=== PATIENT | female | born 1955 | race Caucasian/White ===

== ENCOUNTER 2021-01-16 13:41 | Inpatient (IN) | payer MEDICARE ==
[2021-01-16] MEDS ORDERED: Sodium Chloride 0.9% 10 ML Syringe FLUSH PRN (15:39)
--- NOTE | 2021-01-16 16:00 | EDM.PDOC ---
ED HPI GENERAL MEDICAL PROBLEM - General Chief Complaint: Gastrointestinal Problem Stated Complaint: VOMITING\ COUGH Time Seen by Provider: 01/16/21 14:40 Source of Information: Reports: Patient, Family History Limitations: Reports: No Limitations - History of Present Illness INITIAL COMMENTS - FREE TEXT/NARRATIVE: 65-year-old female presents to emergency department with complaints of fever, chills, nausea, body aches, weakness, headache, shortness of breath and cough. Patient states that the symptoms started 3 days ago. Patient does have a history of heart transplant and kidney transplant in 2014. She states that she has had her Covid vaccines as well as her booster, most recently in September however she does take immunosuppressants. Patient states that she did have Covid January 2020 however managed to stay home. Patient is visiting here from [place]. Back Pain Score (Numeric/FACES): 5 - Related Data Allergies Allergy/AdvReac Type Severity Reaction Status Date / Time piperacillin [From Zosyn] Allergy Severe Itching Verified 01/18/21 23:44 tazobactam [From Zosyn] Allergy Severe Itching Verified 01/18/21 23:44 sulfamethoxazole Allergy Rash Verified 01/16/21 21:13 [From Bactrim] trimethoprim [From Bactrim] Allergy Rash Verified 01/16/21 21:13 Home Meds: Home Meds Aspirin 81 mg PO DAILY 01/16/21 [History] Levothyroxine 75 mcg PO DAILY 01/16/21 [History] Pantoprazole [ProTONIX] 40 mg PO DAILY 01/16/21 [History] Tacrolimus 1 mg PO BEDTIME 01/16/21 [History] Tacrolimus [Prograf] 1.5 mg PO QAM 01/16/21 [History] amLODIPine [Norvasc] 5 mg PO DAILY 01/16/21 [History] atorvaSTATin [Lipitor] 10 mg PO DAILY 01/16/21 [History] mycophenolate mofetiL [Mycophenolate Mofetil] 250 mg PO BID 01/16/21 [History] Ascorbic Acid 2 tab PO DAILY 01/17/21 [History] Cholecalciferol (Vitamin D3) [Vitamin D3] 200 mcg PO BID 01/17/21 [History] Bryan-3/DHA/Epa/Fish Oil [Eql Fish Oil EC 1,200 mg Sftgl] 1 cap PO BID 01/17/21 [History] Vitamin E 1 cap PO BID 01/17/21 [History] predniSONE 5 mg PO DAILY 01/17/21 [History] Past Medical History Cardiovascular History: Reports: High Cholesterol, Hypertension, Other (See Below) Other Cardiovascular History: heart translpant Gastrointestinal History: Reports: GERD Genitourinary History: Reports: Other (See Below) Other Genitourinary History: left kidney transplant [employer] History: Reports: Psychiatric History: Reports: Depression Endocrine/Metabolic History: Reports: Hypothyroidism - Infectious Disease History Infectious Disease History: Reports: Pertussis (Whooping Cough) Social & Family History - Tobacco Use Tobacco Use Status *Q: Never Tobacco User Second Hand Smoke Exposure: No - Caffeine Use Caffeine Use: Reports: Coffee, Soda - Recreational Drug Use Recreational Drug Use: No ED ROS GENERAL - Review of Systems Review Of Systems: Comprehensive ROS is negative, except as noted in HPI. ED EXAM, GENERAL - Physical Exam Exam: See Below Exam Limited By: No Limitations General Appearance: Alert, WD/WN, Moderate Distress Ears: Normal External Exam, Hearing Grossly Normal Nose: Normal Inspection Throat/Mouth: Normal Inspection, Normal Lips, Normal Voice, No Airway Compromise Head: Atraumatic, Normocephalic Neck: Normal Inspection, Supple Respiratory/Chest: No Respiratory Distress, Chest Non-Tender, Decreased Breath Sounds, Crackles (Bilateral) Cardiovascular: Normal Peripheral Pulses, Regular Rate, Rhythm, No Edema, No Murmur Peripheral Pulses: 2+: Radial (L), Radial (R) GI/Abdominal: Normal Bowel Sounds, Soft, Non-Tender, No Distention (Female) Exam: Deferred Rectal (Female) Exam: Deferred Back Exam: Normal Inspection Extremities: Normal Inspection Neurological: Alert, Oriented, Normal Cognition Psychiatric: Normal Affect, Normal Mood Skin Exam: Warm, Dry, Intact, Normal Color, No Rash Lymphatic: No Adenopathy #1 Interpretation EKG Date: 01/16/21 Time: 14:55 Rhythm: NSR Rate (Beats/Min): 96 [place]: LAD-Left [place] Deviation P-Wave: Present QRS: Normal ST-T: Normal QT: Normal Comparison: NA - No Prior EKG EKG Interpretation Comments: Per Dr. Cordon interpretation: Sinus rhythm at 96 bpm; probable left atrial enlargement; borderline left axis deviation; probable anteroseptal infarct, old Course - Vital Signs Text/Narrative:: As stated above, patient presents with Covid-like symptoms despite having Covid swab. I am highly suspicious that she has this. Physical exam reveals a very ill-appearing female. She does appear weak. States that she is feeling short of breath. Nursing staff did have to apply oxygen at 2 L per nasal cannula as her room air saturations were 86%. She does have a systolic murmur noted. Abdomen is soft and nontender. Lung sounds are diminished with crackles noted bilaterally. Will obtain a full septic work-up on this patient to include lab studies, x-ray, blood cultures and urinalysis with micro and culture if indicated. Will also order viral culture per Dr. Cordon recommendations. Last Recorded V/S: Last Vital Signs Temp 97.9 F 01/19/21 05:06 Pulse 76 01/19/21 05:06 Resp 20 01/19/21 05:06 BP 125/77 01/19/21 05:06 Pulse Ox 95 01/19/21 05:06 - Orders/Labs/Meds Orders: Medication Orders Acetaminophen (Acetaminophen 325 Mg Tab) 650 mg PO Q4H PRN PRN Reason: Pain/Fever Last Admin: 01/17/21 08:30 Dose: 650 mg Documented by: ISMA Albuterol (Albuterol 0.083% 2.5 Mg/3 Ml Neb Soln) 2.5 mg NEB Q4H PRN PRN Reason: Shortness of Breath Amlodipine Besylate (Amlodipine 5 Mg Tab) 5 mg PO DAILY [facility] Last Admin: 01/18/21 08:47 Dose: 5 mg Documented by: Admin: 01/17/21 08:32 Dose: 5 mg Documented by: ISMA Ascorbic Acid (Ascorbic Acid 500 Mg Tab) 1,000 mg PO DAILY [facility] Last Admin: 01/18/21 08:47 Dose: 1,000 mg Documented by: JORDAN Aspirin (Aspirin 81 Mg Tab.Chew) 81 mg PO DAILY [facility] Last Admin: 01/18/21 08:47 Dose: 81 mg Documented by: Admin: 01/17/21 08:31 Dose: 81 mg Documented by: ISMA Atorvastatin Calcium (Atorvastatin 20 Mg Tab) 10 mg PO DAILY [facility] Last Admin: 01/18/21 08:46 Dose: 10 mg Documented by: Admin: 01/17/21 08:32 Dose: 10 mg Documented by: ISMA Benzonatate (Benzonatate 100 Mg Cap) 100 mg PO TID PRN PRN Reason: Cough Last Admin: 01/18/21 10:04 Dose: 100 mg Documented by: JORDAN Cholecalciferol (Cholecalciferol (Vitamin D3) 25 Mcg Tab) 25 mcg PO BID [facility] Last Admin: 01/18/21 20:08 Dose: 25 mcg Documented by: Admin: 01/18/21 08:46 Dose: 25 mcg Documented by: JORDAN Diphenhydramine HCl (Diphenhydramine 25 Mg Cap) 25 mg PO Q6HR PRN PRN Reason: Itching Last Admin: 01/18/21 01:18 Dose: 25 mg Documented by: Admin: 01/17/21 10:50 Dose: 25 mg Documented by: ISMA Fish Oil (Fish Oil/Bryan-3 Fatty Acids 1 Gm Cap) 1 gm PO BID [facility] Last Admin: 01/18/21 20:08 Dose: 1 gm Documented by: Admin: 01/18/21 08:46 Dose: 1 gm Documented by: JORDAN Guaifenesin/Codeine Phosphate (Codeine/Guaifenesin 10-100 Mg/5 Ml Syrup 5 Ml Cup) 10 ml PO Q4H PRN PRN Reason: Cough Last Admin: 01/18/21 15:09 Dose: 10 ml Documented by: JORDAN Heparin Sodium (Porcine) (Heparin Sodium 5,000 Units/Ml Vial) 5,000 units SUBCUT Q8H [facility] Last Admin: 01/19/21 01:09 Dose: 5,000 units Documented by: Admin: 01/18/21 17:00 Dose: 5,000 units Documented by: Admin: 01/18/21 10:04 Dose: 5,000 units Documented by: Admin: 01/18/21 01:22 Dose: 5,000 units Documented by: Admin: 01/17/21 17:03 Dose: 5,000 units Documented by: Admin: 01/17/21 10:04 Dose: 5,000 units Documented by: ISMA Hydroxyzine HCl (Hydroxyzine Hcl 10 Mg Tab) 10 mg PO Q8H PRN PRN Reason: Itching Last Admin: 01/18/21 15:34 Dose: 10 mg Documented by: JORDNA Azithromycin 500 mg/ Sodium (Chloride) 250 mls @ 250 mls/hr IV Q24H [facility] Last Admin: 01/18/21 16:31 Dose: 250 mls/hr Documented by: Infusion: 01/17/21 18:29 Dose: 250 mls/hr Documented by: Admin: 01/17/21 17:29 Dose: 250 mls/hr Documented by: ISMA Levothyroxine Sodium (Levothyroxine 75 Mcg Tab) 75 mcg PO ACBREAKFAST [facility] Last Admin: 01/19/21 05:08 Dose: 75 mcg Documented by: Admin: 01/18/21 06:03 Dose: 75 mcg Documented by: Admin: 01/17/21 08:32 Dose: 75 mcg Documented by: ISMA Lorazepam (Lorazepam 0.5 Mg Tab) 0.5 mg PO Q4H PRN PRN Reason: Anxiety Last Admin: 01/18/21 12:57 Dose: 0.5 mg Documented by: JORDAN Mycophenolate Mofetil (Mycophenolate Mofetil 250 Mg Cap) 250 mg PO BID [facility] Last Admin: 01/18/21 20:08 Dose: 250 mg Documented by: Admin: 01/18/21 08:52 Dose: 250 mg Documented by: Admin: 01/17/21 20:41 Dose: 250 mg Documented by: Admin: 01/17/21 08:34 Dose: 250 mg Documented by: ISMA Tacrolimus 0.5 Mg (Cap) 0 each PO DAILY [facility] Last Admin: 01/18/21 08:51 Dose: 1 each Documented by: Admin: 01/17/21 10:06 Dose: 1 each Documented by: ISMA Ondansetron HCl (Ondansetron 4 Mg/2 Ml Sdv) 4 mg IVPUSH Q6H PRN PRN Reason: Nausea Pantoprazole Sodium (Pantoprazole 40 Mg Tab.Cr) 40 mg PO DAILY [facility] Last Admin: 01/18/21 08:46 Dose: 40 mg Documented by: Admin: 01/17/21 08:32 Dose: 40 mg Documented by: ISMA Prednisone (Prednisone 5 Mg Tab) 5 mg PO DAILY [facility] Last Admin: 01/18/21 08:46 Dose: 5 mg Documented by: Admin: 01/17/21 08:32 Dose: 5 mg Documented by: ISMA Tacrolimus (Tacrolimus 1 Mg Cap) 1 mg PO BEDTIME [facility] Last Admin: 01/18/21 20:09 Dose: 1 mg Documented by: Admin: 01/17/21 21:04 Dose: 1 mg Documented by: JEFFY Tacrolimus (Tacrolimus 1 Mg Cap) 1 mg PO DAILY [facility] Last Admin: 01/18/21 08:50 Dose: 1 mg Documented by: Admin: 01/17/21 10:05 Dose: 1 mg Documented by: ISMA Vitamin E (Vitamin E (Vf-Qyven-Ydvuxbukqb Acetate) 400 Unit Cap) 400 units PO BID [facility] Last Admin: 01/18/21 20:08 Dose: 400 units Documented by: Admin: 01/18/21 08:46 Dose: 400 units Documented by: JORDAN Labs: Laboratory Tests 01/16/21 01/16/21 01/16/21 Range/Units 14:35 14:48 14:48 WBC 11.83 H (3.98-10.04) K/mm3 RBC 4.70 (3.98-5.22) M/mm3 Hgb 13.2 (11.2-15.7) gm/dl Hct 42.3 (34.1-44.9) % MCV 90.0 (79.4-94.8) fl MCH 28.1 (25.6-32.2) pg MCHC 31.2 L (32.2-35.5) g/dl RDW Std Deviation 52.6 H (36.4-46.3) fL Plt Count 202 (182-369) K/mm3 MPV 10.1 (9.4-12.3) fl Neut % (Auto) 86.2 H (34.0-71.1) % Lymph % (Auto) 9.0 L (19.3-51.7) % [place] % (Auto) 4.1 L (4.7-12.5) % Eos % (Auto) 0.3 L (0.7-5.8) Baso % (Auto) 0.2 (0.1-1.2) % Neut # (Auto) 10.21 H (1.56-6.13) K/mm3 Lymph # (Auto) 1.07 L (1.18-3.74) K/mm3 [place] # (Auto) 0.48 H (0.24-0.36) K/mm3 Eos # (Auto) 0.03 L (0.04-0.36) K/mm3 Baso # (Auto) 0.02 (0.01-0.08) K/mm3 PT (9.7-12.0) SECONDS INR D-Dimer, Quantitative 3.72 H (0.19-0.50) mg/L Sodium (136-145) mEq/L Potassium (3.5-5.1) mEq/L Chloride (98-107) mEq/L Carbon Dioxide (21-32) mEq/L Anion Gap (5-15) BUN (7-18) mg/dL Creatinine (0.55-1.02) mg/dL Est Cr Clr Drug Dosing mL/min Estimated GFR (MDRD) (>60) mL/min BUN/Creatinine Ratio (14-18) Glucose (70-99) mg/dL Lactic Acid (0.4-2.0) mmol/L Calcium (8.5-10.1) mg/dL Magnesium (1.8-2.4) mg/dL Total Bilirubin (0.2-1.0) mg/dL AST (15-37) U/L ALT (14-59) U/L Alkaline Phosphatase (46-116) U/L Troponin I (0.00-0.056) ng/mL C-Reactive Protein (<1.0) mg/dL NT-Pro-B Natriuret Pep (0-125) pg/mL Total Protein (6.4-8.2) g/dl Albumin (3.4-5.0) g/dl Globulin gm/dL Albumin/Globulin Ratio (1-2) Urine Color (Yellow) Urine Appearance (Clear) Urine pH (5.0-8.0) Ur Specific [place] (1.005-1.030) Urine Protein (Negative) Urine Glucose (UA) (Negative) Urine Ketones (Negative) Urine Occult Blood (Negative) Urine Nitrite (Negative) Urine Bilirubin (Negative) Urine Urobilinogen (0.2-1.0) Ur Leukocyte Esterase (Negative) Urine RBC (0-5) /hpf Urine WBC (0-5) /hpf Ur Squamous Epith Cells (0-5) /hpf Urine Bacteria (FEW) /hpf Urine Mucus (FEW) /hpf Influenza Type A RNA Negative (NEGATIVE) Influenza Type B RNA Negative (NEGATIVE) SARS-CoV-2 RNA (CLAUDY) Negative (NEGATIVE) 01/16/21 01/16/21 01/16/21 Range/Units 14:48 14:48 14:48 WBC (3.98-10.04) K/mm3 RBC (3.98-5.22) M/mm3 Hgb (11.2-15.7) gm/dl Hct (34.1-44.9) % MCV (79.4-94.8) fl MCH (25.6-32.2) pg MCHC (32.2-35.5) g/dl RDW Std Deviation (36.4-46.3) fL Plt Count (182-369) K/mm3 MPV (9.4-12.3) fl Neut % (Auto) (34.0-71.1) % Lymph % (Auto) (19.3-51.7) % [place] % (Auto) (4.7-12.5) % Eos % (Auto) (0.7-5.8) Baso % (Auto) (0.1-1.2) % Neut # (Auto) (1.56-6.13) K/mm3 Lymph # (Auto) (1.18-3.74) K/mm3 [place] # (Auto) (0.24-0.36) K/mm3 Eos # (Auto) (0.04-0.36) K/mm3 Baso # (Auto) (0.01-0.08) K/mm3 PT (9.7-12.0) SECONDS INR D-Dimer, Quantitative (0.19-0.50) mg/L Sodium 140 (136-145) mEq/L Potassium 3.5 (3.5-5.1) mEq/L Chloride 101 (98-107) mEq/L Carbon Dioxide 27 (21-32) mEq/L Anion Gap 15.5 H (5-15) BUN 20 H (7-18) mg/dL Creatinine 1.2 H (0.55-1.02) mg/dL Est Cr Clr Drug Dosing 35.27 mL/min Estimated GFR (MDRD) 45 (>60) mL/min BUN/Creatinine Ratio 16.7 (14-18) Glucose 153 H (70-99) mg/dL Lactic Acid 2.6 H* (0.4-2.0) mmol/L Calcium 9.0 (8.5-10.1) mg/dL Magnesium 1.3 L (1.8-2.4) mg/dL Total Bilirubin 0.9 (0.2-1.0) mg/dL AST 15 (15-37) U/L ALT 23 (14-59) U/L Alkaline Phosphatase 49 (46-116) U/L Troponin I < 0.017 (0.00-0.056) ng/mL C-Reactive Protein 4.2 H* (<1.0) mg/dL NT-Pro-B Natriuret Pep 352 H (0-125) pg/mL Total Protein 8.3 H (6.4-8.2) g/dl Albumin 4.2 (3.4-5.0) g/dl Globulin 4.1 gm/dL Albumin/Globulin Ratio 1.0 (1-2) Urine Color (Yellow) Urine Appearance (Clear) Urine pH (5.0-8.0) Ur Specific [place] (1.005-1.030) Urine Protein (Negative) Urine Glucose (UA) (Negative) Urine Ketones (Negative) Urine Occult Blood (Negative) Urine Nitrite (Negative) Urine Bilirubin (Negative) Urine Urobilinogen (0.2-1.0) Ur Leukocyte Esterase (Negative) Urine RBC (0-5) /hpf Urine WBC (0-5) /hpf Ur Squamous Epith Cells (0-5) /hpf Urine Bacteria (FEW) /hpf Urine Mucus (FEW) /hpf Influenza Type A RNA (NEGATIVE) Influenza Type B RNA (NEGATIVE) SARS-CoV-2 RNA (CLAUDY) (NEGATIVE) 01/16/21 01/16/21 01/16/21 Range/Units 14:48 16:11 18:30 WBC (3.98-10.04) K/mm3 RBC (3.98-5.22) M/mm3 Hgb (11.2-15.7) gm/dl Hct (34.1-44.9) % MCV (79.4-94.8) fl MCH (25.6-32.2) pg MCHC (32.2-35.5) g/dl RDW Std Deviation (36.4-46.3) fL Plt Count (182-369) K/mm3 MPV (9.4-12.3) fl Neut % (Auto) (34.0-71.1) % Lymph % (Auto) (19.3-51.7) % [place] % (Auto) (4.7-12.5) % Eos % (Auto) (0.7-5.8) Baso % (Auto) (0.1-1.2) % Neut # (Auto) (1.56-6.13) K/mm3 Lymph # (Auto) (1.18-3.74) K/mm3 [place] # (Auto) (0.24-0.36) K/mm3 Eos # (Auto) (0.04-0.36) K/mm3 Baso # (Auto) (0.01-0.08) K/mm3 PT 10.5 (9.7-12.0) SECONDS INR 0.94 D-Dimer, Quantitative (0.19-0.50) mg/L Sodium (136-145) mEq/L Potassium (3.5-5.1) mEq/L Chloride (98-107) mEq/L Carbon Dioxide (21-32) mEq/L Anion Gap (5-15) BUN (7-18) mg/dL Creatinine (0.55-1.02) mg/dL Est Cr Clr Drug Dosing mL/min Estimated GFR (MDRD) (>60) mL/min BUN/Creatinine Ratio (14-18) Glucose (70-99) mg/dL Lactic Acid 1.8 (0.4-2.0) mmol/L Calcium (8.5-10.1) mg/dL Magnesium (1.8-2.4) mg/dL Total Bilirubin (0.2-1.0) mg/dL AST (15-37) U/L ALT (14-59) U/L Alkaline Phosphatase (46-116) U/L Troponin I (0.00-0.056) ng/mL C-Reactive Protein (<1.0) mg/dL NT-Pro-B Natriuret Pep (0-125) pg/mL Total Protein (6.4-8.2) g/dl Albumin (3.4-5.0) g/dl Globulin gm/dL Albumin/Globulin Ratio (1-2) Urine Color Yellow (Yellow) Urine Appearance Clear (Clear) Urine pH 6.5 (5.0-8.0) Ur Specific [place] 1.020 (1.005-1.030) Urine Protein Trace H (Negative) Urine Glucose (UA) Negative (Negative) Urine Ketones Negative (Negative) Urine Occult Blood Negative (Negative) Urine Nitrite Negative (Negative) Urine Bilirubin Negative (Negative) Urine Urobilinogen 0.2 (0.2-1.0) Ur Leukocyte Esterase Negative (Negative) Urine RBC 0-5 (0-5) /hpf Urine WBC 0-5 (0-5) /hpf Ur Squamous Epith Cells 0-5 (0-5) /hpf Urine Bacteria Few (FEW) /hpf Urine Mucus Few (FEW) /hpf Influenza Type A RNA (NEGATIVE) Influenza Type B RNA (NEGATIVE) SARS-CoV-2 RNA (CLAUDY) (NEGATIVE) Meds: Medications Generic Name Dose Route Start Last Admin Trade Name Freq PRN Reason Stop Dose Admin Acetaminophen 650 mg 01/16/21 22:41 01/17/21 08:30 Acetaminophen 325 Mg Tab PO 650 mg Q4H PRN Administration Pain/Fever Albuterol 2.5 mg 01/16/21 22:42 Albuterol 0.083% 2.5 Mg/3 Ml Neb Soln NEB Q4H PRN Shortness of Breath Amlodipine Besylate 5 mg 01/17/21 09:00 01/18/21 08:47 Amlodipine 5 Mg Tab PO 5 mg DAILY ARANZA Administration Ascorbic Acid 1,000 mg 01/18/21 09:00 01/18/21 08:47 Ascorbic Acid 500 Mg Tab PO 1,000 mg DAILY ARANZA Administration Aspirin 81 mg 01/17/21 09:00 01/18/21 08:47 Aspirin 81 Mg Tab.Chew PO 81 mg DAILY ARANZA Administration Atorvastatin Calcium 10 mg 01/17/21 09:00 01/18/21 08:46 Atorvastatin 20 Mg Tab PO 10 mg DAILY ARANZA Administration Benzonatate 100 mg 01/18/21 09:04 01/18/21 10:04 Benzonatate 100 Mg Cap PO 100 mg TID PRN Administration Cough Cholecalciferol 25 mcg 01/18/21 09:00 01/18/21 20:08 Cholecalciferol (Vitamin D3) 25 Mcg Tab PO 25 mcg BID ARANZA Administration Diphenhydramine HCl 25 mg 01/17/21 10:26 01/18/21 01:18 Diphenhydramine 25 Mg Cap PO 25 mg Q6HR PRN Administration Itching Fish Oil 1 gm 01/18/21 09:00 01/18/21 20:08 Fish Oil/Bryan-3 Fatty Acids 1 Gm Cap PO 1 gm BID ARANZA Administration Guaifenesin/Codeine Phosphate 10 ml 01/18/21 14:58 01/18/21 15:09 Codeine/Guaifenesin 10-100 Mg/5 Ml Syrup 5 Ml Cup PO 10 ml Q4H PRN Administration Cough Heparin Sodium (Porcine) 5,000 units 01/17/21 10:00 01/19/21 01:09 Heparin Sodium 5,000 Units/Ml Vial SUBCUT 5,000 units Q8H ARANZA Administration Hydroxyzine HCl 10 mg 01/18/21 10:13 01/18/21 15:34 Hydroxyzine Hcl 10 Mg Tab PO 10 mg Q8H PRN Administration Itching Azithromycin 500 mg/ Sodium 250 mls @ 250 mls/hr 01/17/21 17:15 01/18/21 16:31 Chloride IV 250 mls/hr Q24H ARANZA Administration Levothyroxine Sodium 75 mcg 01/17/21 07:00 01/19/21 05:08 Levothyroxine 75 Mcg Tab PO 75 mcg ACBREAKFAST ARANZA Administration Lorazepam 0.5 mg 01/18/21 10:12 01/18/21 12:57 Lorazepam 0.5 Mg Tab PO 0.5 mg Q4H PRN Administration Anxiety Mycophenolate Mofetil 250 mg 01/17/21 09:00 01/18/21 20:08 Mycophenolate Mofetil 250 Mg Cap PO 250 mg BID ARANZA Administration Tacrolimus 0.5 Mg 0 each 01/17/21 10:00 01/18/21 08:51 Cap PO 1 each DAILY ARANZA Administration Ondansetron HCl 4 mg 01/16/21 22:40 Ondansetron 4 Mg/2 Ml Sdv IVPUSH Q6H PRN Nausea Pantoprazole Sodium 40 mg 01/17/21 09:00 01/18/21 08:46 Pantoprazole 40 Mg Tab.Cr PO 40 mg DAILY ARANZA Administration Prednisone 5 mg 01/17/21 09:00 01/18/21 08:46 Prednisone 5 Mg Tab PO 5 mg DAILY ARANZA Administration Tacrolimus 1 mg 01/17/21 21:00 01/18/21 20:09 Tacrolimus 1 Mg Cap PO 1 mg BEDTIME ARANZA Administration Tacrolimus 1 mg 01/17/21 10:00 01/18/21 08:50 Tacrolimus 1 Mg Cap PO 1 mg DAILY ARANZA Administration Vitamin E 400 units 01/18/21 09:00 01/18/21 20:08 Vitamin E (Gy-Lpjrd-Dyghuffzni Acetate) 400 Unit Cap PO 400 units BID ARANZA Administration Discontinued Medications Generic Name Dose Route Start Last Admin Trade Name Freq PRN Reason Stop Dose Admin Diphenhydramine HCl 25 mg 01/17/21 15:29 01/17/21 15:47 Diphenhydramine 25 Mg Cap PO 01/17/21 15:30 25 mg ONETIME ONE Administration Sodium Chloride 1,000 mls @ 250 mls/hr 01/16/21 17:00 01/16/21 17:14 Normal Saline IV 250 mls/hr ASDIRECTED ARANZA Administration Magnesium Sulfate 4 gm/ Premix 50 mls @ 12.5 mls/hr 01/16/21 16:59 01/16/21 17:16 IV 01/16/21 20:58 12.5 mls/hr ONETIME ONE Administration Meropenem/Sodium Chloride 500 50 mls @ 100 mls/hr 01/16/21 19:44 01/16/21 20:26 mg/ Premix IV 01/16/21 20:13 100 mls/hr ONETIME ONE Administration Meropenem/Sodium Chloride 500 50 mls @ 100 mls/hr 01/17/21 10:00 01/17/21 10:04 mg/ Premix IV 100 mls/hr Q8H ARANZA Administration Piperacillin Sod/Tazobactam 100 mls @ 25 mls/hr 01/17/21 17:15 01/18/21 08:52 Sod 4.5 gm/ Sodium Chloride IV Not Given Q8H ARANZA Ondansetron HCl 4 mg 01/16/21 16:56 01/16/21 17:15 Ondansetron 4 Mg/2 Ml Sdv IVPUSH 01/16/21 16:57 4 mg ONETIME ONE Administration Tacrolimus 0.5 Mg 1.5 each 01/17/21 08:00 01/17/21 11:48 Cap PO Not Given QAM ARANZA Prednisone 20 mg 01/17/21 16:56 01/17/21 17:03 Prednisone 20 Mg Tab PO 01/17/21 16:57 20 mg ONETIME ONE Administration Prednisone 20 mg 01/17/21 20:53 01/17/21 21:03 Prednisone 20 Mg Tab PO 01/17/21 20:54 20 mg ONETIME ONE Administration Prednisone 5 mg 01/18/21 09:00 Prednisone 5 Mg Tab PO DAILY ARANZA Sodium Chloride 10 ml 01/16/21 15:39 01/16/21 16:03 Sodium Chloride 0.9% 10 Ml Syringe FLUSH 10 ml ASDIRECTED PRN Administration Keep Vein Open - Re-Assessments/Exams Free Text/Narrative Re-Assessment/Exam: 01/16/21 16:34 Hematology reveals a WBC of 11.83, hemoglobin 13.2, hematocrit 42.3, platelet count 202 Coagulation reveals a pro time of 10.5, INR 0.94 Chemistry reveals a sodium of 140, potassium 3.5, anion gap 15.5, BUN 20, creatinine 1.2, GFR 45, glucose 153, lactic acid 2.6, magnesium 1.3, troponin less than 0.017, C-reactive protein 4.2 Urinalysis is unremarkable Influenza a and B are negative Covid is negative We will start the patient on normal saline at 250 mL's per hour. 01/16/21 17:59 D-dimer comes back elevated at 3.72, proBNP 352 We will obtain a CTA of the lungs. 01/16/21 18:01 Radiologist impression frontal view of the chest: 1. Slight increase in lung markings. Without old chest x-ray, uncertain of this is chronic or represents an acute change such as bronchitis if patient has infectious symptoms. Other etiology could possibly be mild pulmonary vascular congestion. 2. Other findings which are felt to be chronic 01/16/21 18:[address] of the chest: Pulmonary arteries are well opacified. No filling defects are seen to indicate pulmonary embolism. Ascending aorta is increased in size measuring 4.3 cm. Descending aorta appears normal in size. Mediastinum shows no adenopathy. No axillary adenopathy is seen. Heart size is enlarged. No pericardial thickening is seen. Small hiatal hernia is noted. Other visualized portions of the abdomen appear within normal limits. Lung window settings were reviewed. Mild patchy areas of reticulonodular densities are seen within the right upper lung with minimal interstitial changes seen within other portions of both lungs. Volume window settings were reviewed which show prior sternotomy. No acute osseous abnormalities appreciated. Impression: 1. No findings of pulmonary embolism. 2. 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 3. Heart is slightly enlarged. 4. Reticulonodular densities seen within the right upper lung as well as minimal interstitial change within both lungs. Findings presumably are due to areas of bronchitis if patient has infectious symptoms which could be bacterial or atypical infection, please correlate. 01/16/21 19:06 I do feel this patient needs to be admitted for the treatment of pneumonia. I did discuss the case with Dr. Jenkins who requests that I call and consult with cardiology regarding this patient. 01/16/21 19:14 I did phone [place] [id number] call to speak with roll tube setter senior compensation consultant. She states that she will give me a call back to connect me with roll tube setter. 01/16/21 19:35 Discussed this case with the on-call roll tube setter at [facility] in [place], Dr. Maria, who only recommends that first thing tomorrow the hospitalist contact the patient's precision farming coordinator and keep them in the loop regarding the patient. No further recommendations were given. 01/16/21 19:45 Discussed the case with Dr. Jenkins who does accept patient into his service. Request that I start the patient on meropenem for the treatment of pneumonia. He also request that I write bridge orders for this patient. Departure - Departure Time of Disposition: 20:45 Disposition: Admitted As Inpatient [id number] Condition: Good Clinical Impression: Pneumonia Qualifiers: Pneumonia type: due to unspecified organism Laterality: unspecified laterality Lung location: unspecified part of lung Qualified Code(s): J18.9 - Pneumonia, unspecified organism - Discharge Information
[2021-01-16 16:02] LABS: CORONAVIRUS COVID-19 NAA NEGATIVE (NEGATIVE)
[2021-01-16] MEDS ORDERED: Ondansetron 4 MG/2 ML SDV IVPUSH ONE (16:56)
[2021-01-16] MEDS ORDERED: Magnesium Sulfate/Water 4 GM in Premix Bag 1 BAG IV ONE (16:59)
[2021-01-16] MEDS ORDERED: Sodium Chloride 0.9% 1,000 ML IV SCH (17:00)
--- NOTE | 2021-01-16 17:02 | CR ---
Chest: Frontal view of the chest was obtained. Comparison: No prior chest imaging is available. Slight scoliosis is noted within the spine. Sternotomy is noted. Heart size appears to be at the upper limits of normal. Slight tortuosity of the thoracic aorta is seen. Lung markings are mildly increased on both sides of the chest. No alveolar densities are seen. Impression: 1. Slight increase in lung markings. Without old chest x-ray, uncertain of this is chronic or represents an acute change such as bronchitis if patient has infectious symptoms. Other etiology could possibly be mild pulmonary vascular congestion. 2. Other findings which are felt to be chronic as noted above. Diagnostic code #3
--- NOTE | 2021-01-16 18:27 | CT ---
CT chest Technique: Multiple axial sections through the chest were obtained. Intravenous contrast was utilized. Study has been performed as a pulmonary angiogram protocol. Comparison: Prior chest x-ray performed earlier in the same day (3:45 PM). Findings: Pulmonary arteries are well opacified. No filling defects are seen to indicate pulmonary embolism. Ascending aorta is increased in size measuring 4.3 cm. Descending aorta appears normal in size. Mediastinum shows no adenopathy. No axillary adenopathy is seen. Heart is slightly enlarged. No pericardial thickening is seen. Small hiatal hernia is noted. Other visualized portions of the abdomen appear within normal limits. Lung window settings were reviewed. Mild patchy areas of reticulonodular densities are seen within the right upper lung with minimal interstitial changes seen within other portions of both lungs. Bone window settings were reviewed which show prior sternotomy. No acute osseous abnormality is appreciated. Impression: 1. No findings of pulmonary embolism. 2. Mild aneurysmal dilatation of the ascending aorta with AP dimension of 4.3 cm. 3. Heart is slightly enlarged. 4. Reticulonodular densities within the right upper lung as well as minimal interstitial change within both lungs. Findings presumably are due to areas of bronchitis if patient has infectious symptoms which could be bacterial or atypical infection, please correlate. Diagnostic code #3
[2021-01-16] MEDS ORDERED: Meropenem Premix 500 MG in Premix Bag 1 BAG IV ONE (19:44)
[2021-01-16] MEDS ORDERED: Ondansetron 4 MG/2 ML SDV IVPUSH PRN (22:40)
[2021-01-16] MEDS ORDERED: Albuterol 0.083% 2.5 MG/3 ML Neb Soln NEB PRN (22:42)
--- NOTE | 2021-01-17 06:34 | PCM.HP.2 ---
H&P History of Present Illness - General Date of Service: 01/17/21 Admit Problem/Dx: Admission Diagnosis/Problem Admission Diagnosis/Problem pneumonia complicated by immune suppressants, acute respiratory failure Source of Information: Patient History Limitations: Reports: No Limitations - History of Present Illness Initial Comments - Free Text/Narative: The patient is a 65-year-old lady who had presented to the emergency department with a complaint of fever, chills, nausea with 1 episode of vomiting as well as body aches. Patient also says that she has had a headache and has been short of breath with a nonproductive cough. The patient is currently trying to travel b [employer] to her home in [place] and she has been visiting here. The patient has had COVID-19 in the past as well as immunizations. The patient also had been hypoxic in the emergency department and she does not use oxygen at home. The patient also has a history of heart transplant and kidney transplant and is on immunosuppressants. The patient also has a history of hypothyroidism as well as hypertension. The patient had been in her usual state of health up until approximately 3 days ago. She has no other specific aggravating or relieving factors. Onset of Symptoms: Reports: Gradual Duration of Symptoms: Reports: Day(s): (The patient was well up until 3 days ago.) Location: Reports: Chest, Generalized (Body aches) Quality: Reports: Ache, Dull Severity: Moderate Improves with: Reports: Rest Worsens with: Reports: None Context: Reports: Sick Contact, Travel Associated Symptoms: Reports: Cough, Fever/Chills, Headaches, Loss of Appetite, Nausea/Vomiting Back Pain Score (Numeric/FACES): 0 - Related Data Allergies/Adverse Reactions: Allergies Allergy/AdvReac Type Severity Reaction Status Date / Time sulfamethoxazole Allergy Rash Verified 01/16/21 21:13 [From Bactrim] trimethoprim [From Bactrim] Allergy Rash Verified 01/16/21 21:13 Home Medications: Home Meds Aspirin 81 mg PO DAILY 01/16/21 [History] Levothyroxine 75 mcg PO DAILY 01/16/21 [History] Pantoprazole [ProTONIX] 40 mg PO DAILY 01/16/21 [History] Tacrolimus 1 mg PO BEDTIME 01/16/21 [History] Tacrolimus [Prograf] 1.5 mg PO QAM 01/16/21 [History] amLODIPine [Norvasc] 5 mg PO DAILY 01/16/21 [History] atorvaSTATin [Lipitor] 10 mg PO DAILY 01/16/21 [History] mycophenolate mofetiL [Mycophenolate Mofetil] 250 mg PO BID 01/16/21 [History] Ascorbic Acid 2 tab PO DAILY 01/17/21 [History] Calcium Carbonate/Vitamin D3 [Oyster Shell 500-Vit D3 200 Pk] 01/17/21 [History] [place]-3/DHA/Epa/Fish Oil [Eql Fish Oil EC 1,200 mg Sftgl] 1 cap PO BID 01/17/21 [History] Vitamin E 1 cap PO BID 01/17/21 [History] predniSONE 5 mg PO DAILY 01/17/21 [History] Past Medical History HEENT History: Reports: Other (See Below) Other HEENT History: tyler staples Cardiovascular History: Reports: High Cholesterol, Hypertension, Other (See Below) Other Cardiovascular History: heart translpant Respiratory History: Reports: None Gastrointestinal History: Reports: GERD Genitourinary History: Reports: Other (See Below) Other Genitourinary History: left kidney transplant MEDICAL OR SURGICAL INSTRUMENT MAKER History: Reports: Musculoskeletal History: Reports: Arthritis Other Musculoskeletal History: recent mri and found arthritis in neck and right shoulder Neurological History: Reports: None Psychiatric History: Reports: Depression Endocrine/Metabolic History: Reports: Hypothyroidism Hematologic History: Reports: None Immunologic History: Reports: Immunosuppression, Solid Organ Transplant Other Immunologic History: heart and kidney Oncologic (Cancer) History: Reports: Squamous Cell Carcinoma Dermatologic History: Reports: Other (See Below) Other Dermatologic History: squamous cell skin cancer removal to her chest and also to her back - Infectious Disease History Infectious Disease History: Reports: Chicken Pox, Measles, MRSA, Novel Coronavirus, Pertussis (Whooping Cough), Other (See Below) Other Infectious Disease History: MRSA in the groin and states she has been cleared - Past Surgical History HEENT Surgical History: Reports: None Cardiovascular Surgical History: Reports: None GI Surgical History: Reports: None Female Surgical History: Reports: Section Other Female Surgeries/Procedures: x 2, ovarian cyst reoved Endocrine Surgical History: Reports: None Musculoskeletal Surgical History: Reports: None Oncologic Surgical History: Reports: None Dermatological Surgical History: Reports: None Social & Family History - Family History Family Medical History: No Pertinent Family History - Tobacco Use Tobacco Use Status *Q: Former Tobacco User Years of Tobacco use: 10 Packs/Tins Daily: 1 Used Tobacco, but Quit: No Second Hand Smoke Exposure: No - Caffeine Use Caffeine Use: Reports: Soda Other Caffeine Use: drinks diet coke, sprite or coffee once in awhile - Recreational Drug Use Recreational Drug Use: No Drug Use in Last 12 Months: No - Living Situation & Occupation Living situation: Reports: , with Spouse Occupation: Retired H&P Review of Systems - Review of Systems: Review Of Systems: See Below General: Reports: Fever, Chills, Weakness, Fatigue, Night Sweats HEENT: Reports: No Symptoms Pulmonary: Reports: Shortness of Breath, Cough Cardiovascular: Reports: No Symptoms Gastrointestinal: Reports: Decreased Appetite, Nausea Genitourinary: Reports: No Symptoms Musculoskeletal: Reports: No Symptoms Skin: Reports: No Symptoms Psychiatric: Reports: No Symptoms Neurological: Reports: No Symptoms Hematologic/Lymphatic: Reports: No Symptoms Immunologic: Reports: No Symptoms Exam - Exam Exam: See Below - Vital Signs Vital Signs: Last Vital Signs Temp 36.9 C 01/17/21 00:01 Pulse 78 01/17/21 00:01 Resp 18 01/17/21 00:01 BP 95/56 L 01/17/21 00:01 Pulse Ox 93 L 01/17/21 00:01 Weight: 59.738 kg - Exam Quality Assessment: Supplemental Oxygen, DVT Prophylaxis General: Alert, Oriented, Cooperative HEENT: Conjunctiva Clear, EACs Clear, EOMI, Hearing Intact, Mucosa Moist & [place], PERRLA Neck: Supple, Trachea Midline Lungs: Normal Respiratory Effort, Crackles (Widely scattered), Other (Midline sternotomy) Cardiovascular: Regular Rate, Regular Rhythm GI/Abdominal Exam: Normal Bowel Sounds, Soft, Non-Tender, No Distention (Female) Exam: Deferred Rectal (Female) Exam: Deferred Back Exam: Normal Inspection, Full Range of Motion Extremities: Normal Inspection, Normal Range of Motion, No Pedal Edema Skin: Warm, Dry, Intact Neurological: Cranial Nerves Intact, Normal Gait, Normal Speech Psychiatric: Alert, Normal Affect, Normal Mood - Patient Data Lab Results Last 24 hrs: Laboratory Results - last 24 hr 01/16/21 01/16/21 01/16/21 Range/Units 14:35 14:48 14:48 WBC 11.83 H (3.98-10.04) K/mm3 RBC 4.70 (3.98-5.22) M/mm3 Hgb 13.2 (11.2-15.7) gm/dl Hct 42.3 (34.1-44.9) % MCV 90.0 (79.4-94.8) fl MCH 28.1 (25.6-32.2) pg MCHC 31.2 L (32.2-35.5) g/dl RDW Std Deviation 52.6 H (36.4-46.3) fL Plt Count 202 (182-369) K/mm3 MPV 10.1 (9.4-12.3) fl Neut % (Auto) 86.2 H (34.0-71.1) % Lymph % (Auto) 9.0 L (19.3-51.7) % Hughes % (Auto) 4.1 L (4.7-12.5) % Eos % (Auto) 0.3 L (0.7-5.8) Baso % (Auto) 0.2 (0.1-1.2) % Neut # (Auto) 10.21 H (1.56-6.13) K/mm3 Lymph # (Auto) 1.07 L (1.18-3.74) K/mm3 Hughes # (Auto) 0.48 H (0.24-0.36) K/mm3 Eos # (Auto) 0.03 L (0.04-0.36) K/mm3 Baso # (Auto) 0.02 (0.01-0.08) K/mm3 PT (9.7-12.0) SECONDS INR D-Dimer, Quantitative 3.72 H (0.19-0.50) mg/L Sodium (136-145) mEq/L Potassium (3.5-5.1) mEq/L Chloride (98-107) mEq/L Carbon Dioxide (21-32) mEq/L Anion Gap (5-15) BUN (7-18) mg/dL Creatinine (0.55-1.02) mg/dL Est Cr Clr Drug Dosing mL/min Estimated GFR (MDRD) (>60) mL/min BUN/Creatinine Ratio (14-18) Glucose (70-99) mg/dL Lactic Acid (0.4-2.0) mmol/L Calcium (8.5-10.1) mg/dL Magnesium (1.8-2.4) mg/dL Total Bilirubin (0.2-1.0) mg/dL AST (15-37) U/L ALT (14-59) U/L Alkaline Phosphatase (46-116) U/L Troponin I (0.00-0.056) ng/mL C-Reactive Protein (<1.0) mg/dL NT-Pro-B Natriuret Pep (0-125) pg/mL Total Protein (6.4-8.2) g/dl Albumin (3.4-5.0) g/dl Globulin gm/dL Albumin/Globulin Ratio (1-2) Urine Color (Yellow) Urine Appearance (Clear) Urine pH (5.0-8.0) Ur Specific [place] (1.005-1.030) Urine Protein (Negative) Urine Glucose (UA) (Negative) Urine Ketones (Negative) Urine Occult Blood (Negative) Urine Nitrite (Negative) Urine Bilirubin (Negative) Urine Urobilinogen (0.2-1.0) Ur Leukocyte Esterase (Negative) Urine RBC (0-5) /hpf Urine WBC (0-5) /hpf Ur Squamous Epith Cells (0-5) /hpf Urine Bacteria (FEW) /hpf Urine Mucus (FEW) /hpf Influenza Type A RNA Negative (NEGATIVE) Influenza Type B RNA Negative (NEGATIVE) SARS-CoV-2 RNA (CLAUDY) Negative (NEGATIVE) 01/16/21 01/16/21 01/16/21 Range/Units 14:48 14:48 14:48 WBC (3.98-10.04) K/mm3 RBC (3.98-5.22) M/mm3 Hgb (11.2-15.7) gm/dl Hct (34.1-44.9) % MCV (79.4-94.8) fl MCH (25.6-32.2) pg MCHC (32.2-35.5) g/dl RDW Std Deviation (36.4-46.3) fL Plt Count (182-369) K/mm3 MPV (9.4-12.3) fl Neut % (Auto) (34.0-71.1) % Lymph % (Auto) (19.3-51.7) % Hughes % (Auto) (4.7-12.5) % Eos % (Auto) (0.7-5.8) Baso % (Auto) (0.1-1.2) % Neut # (Auto) (1.56-6.13) K/mm3 Lymph # (Auto) (1.18-3.74) K/mm3 Hughes # (Auto) (0.24-0.36) K/mm3 Eos # (Auto) (0.04-0.36) K/mm3 Baso # (Auto) (0.01-0.08) K/mm3 PT (9.7-12.0) SECONDS INR D-Dimer, Quantitative (0.19-0.50) mg/L Sodium 140 (136-145) mEq/L Potassium 3.5 (3.5-5.1) mEq/L Chloride 101 (98-107) mEq/L Carbon Dioxide 27 (21-32) mEq/L Anion Gap 15.5 H (5-15) BUN 20 H (7-18) mg/dL Creatinine 1.2 H (0.55-1.02) mg/dL Est Cr Clr Drug Dosing 35.27 mL/min Estimated GFR (MDRD) 45 (>60) mL/min BUN/Creatinine Ratio 16.7 (14-18) Glucose 153 H (70-99) mg/dL Lactic Acid 2.6 H* (0.4-2.0) mmol/L Calcium 9.0 (8.5-10.1) mg/dL Magnesium 1.3 L (1.8-2.4) mg/dL Total Bilirubin 0.9 (0.2-1.0) mg/dL AST 15 (15-37) U/L ALT 23 (14-59) U/L Alkaline Phosphatase 49 (46-116) U/L Troponin I < 0.017 (0.00-0.056) ng/mL C-Reactive Protein 4.2 H* (<1.0) mg/dL NT-Pro-B Natriuret Pep 352 H (0-125) pg/mL Total Protein 8.3 H (6.4-8.2) g/dl Albumin 4.2 (3.4-5.0) g/dl Globulin 4.1 gm/dL Albumin/Globulin Ratio 1.0 (1-2) Urine Color (Yellow) Urine Appearance (Clear) Urine pH (5.0-8.0) Ur Specific [place] (1.005-1.030) Urine Protein (Negative) Urine Glucose (UA) (Negative) Urine Ketones (Negative) Urine Occult Blood (Negative) Urine Nitrite (Negative) Urine Bilirubin (Negative) Urine Urobilinogen (0.2-1.0) Ur Leukocyte Esterase (Negative) Urine RBC (0-5) /hpf Urine WBC (0-5) /hpf Ur Squamous Epith Cells (0-5) /hpf Urine Bacteria (FEW) /hpf Urine Mucus (FEW) /hpf Influenza Type A RNA (NEGATIVE) Influenza Type B RNA (NEGATIVE) SARS-CoV-2 RNA (CLAUDY) (NEGATIVE) 01/16/21 01/16/21 01/16/21 Range/Units 14:48 16:11 18:30 WBC (3.98-10.04) K/mm3 RBC (3.98-5.22) M/mm3 Hgb (11.2-15.7) gm/dl Hct (34.1-44.9) % MCV (79.4-94.8) fl MCH (25.6-32.2) pg MCHC (32.2-35.5) g/dl RDW Std Deviation (36.4-46.3) fL Plt Count (182-369) K/mm3 MPV (9.4-12.3) fl Neut % (Auto) (34.0-71.1) % Lymph % (Auto) (19.3-51.7) % Hughes % (Auto) (4.7-12.5) % Eos % (Auto) (0.7-5.8) Baso % (Auto) (0.1-1.2) % Neut # (Auto) (1.56-6.13) K/mm3 Lymph # (Auto) (1.18-3.74) K/mm3 [place] # (Auto) (0.24-0.36) K/mm3 Eos # (Auto) (0.04-0.36) K/mm3 Baso # (Auto) (0.01-0.08) K/mm3 PT 10.5 (9.7-12.0) SECONDS INR 0.94 D-Dimer, Quantitative (0.19-0.50) mg/L Sodium (136-145) mEq/L Potassium (3.5-5.1) mEq/L Chloride (98-107) mEq/L Carbon Dioxide (21-32) mEq/L Anion Gap (5-15) BUN (7-18) mg/dL Creatinine (0.55-1.02) mg/dL Est Cr Clr Drug Dosing mL/min Estimated GFR (MDRD) (>60) mL/min BUN/Creatinine Ratio (14-18) Glucose (70-99) mg/dL Lactic Acid 1.8 (0.4-2.0) mmol/L Calcium (8.5-10.1) mg/dL Magnesium (1.8-2.4) mg/dL Total Bilirubin (0.2-1.0) mg/dL AST (15-37) U/L ALT (14-59) U/L Alkaline Phosphatase (46-116) U/L Troponin I (0.00-0.056) ng/mL C-Reactive Protein (<1.0) mg/dL NT-Pro-B Natriuret Pep (0-125) pg/mL Total Protein (6.4-8.2) g/dl Albumin (3.4-5.0) g/dl Globulin gm/dL Albumin/Globulin Ratio (1-2) Urine Color Yellow (Yellow) Urine Appearance Clear (Clear) Urine pH 6.5 (5.0-8.0) Ur Specific [place] 1.020 (1.005-1.030) Urine Protein Trace H (Negative) Urine Glucose (UA) Negative (Negative) Urine Ketones Negative (Negative) Urine Occult Blood Negative (Negative) Urine Nitrite Negative (Negative) Urine Bilirubin Negative (Negative) Urine Urobilinogen 0.2 (0.2-1.0) Ur Leukocyte Esterase Negative (Negative) Urine RBC 0-5 (0-5) /hpf Urine WBC 0-5 (0-5) /hpf Ur Squamous Epith Cells 0-5 (0-5) /hpf Urine Bacteria Few (FEW) /hpf Urine Mucus Few (FEW) /hpf Influenza Type A RNA (NEGATIVE) Influenza Type B RNA (NEGATIVE) SARS-CoV-2 RNA (CLAUDY) (NEGATIVE) 01/17/21 Range/Units 05:41 WBC 19.80 H (3.98-10.04) K/mm3 RBC 4.23 (3.98-5.22) M/mm3 Hgb 11.9 (11.2-15.7) gm/dl Hct 38.1 (34.1-44.9) % MCV 90.1 (79.4-94.8) fl MCH 28.1 (25.6-32.2) pg MCHC 31.2 L (32.2-35.5) g/dl RDW Std Deviation 52.9 H (36.4-46.3) fL Plt Count 198 (182-369) K/mm3 MPV 9.7 (9.4-12.3) fl Neut % (Auto) 76.7 H (34.0-71.1) % Lymph % (Auto) 16.2 L (19.3-51.7) % [place] % (Auto) 6.0 (4.7-12.5) % Eos % (Auto) 0.1 L (0.7-5.8) Baso % (Auto) 0.2 (0.1-1.2) % Neut # (Auto) 15.21 H (1.56-6.13) K/mm3 Lymph # (Auto) 3.20 (1.18-3.74) K/mm3 [place] # (Auto) 1.19 H (0.24-0.36) K/mm3 Eos # (Auto) 0.01 L (0.04-0.36) K/mm3 Baso # (Auto) 0.04 (0.01-0.08) K/mm3 PT (9.7-12.0) SECONDS INR D-Dimer, Quantitative (0.19-0.50) mg/L Sodium (136-145) mEq/L Potassium (3.5-5.1) mEq/L Chloride (98-107) mEq/L Carbon Dioxide (21-32) mEq/L Anion Gap (5-15) BUN (7-18) mg/dL Creatinine (0.55-1.02) mg/dL Est Cr Clr Drug Dosing mL/min Estimated GFR (MDRD) (>60) mL/min BUN/Creatinine Ratio (14-18) Glucose (70-99) mg/dL Lactic Acid (0.4-2.0) mmol/L Calcium (8.5-10.1) mg/dL Magnesium (1.8-2.4) mg/dL Total Bilirubin (0.2-1.0) mg/dL AST (15-37) U/L ALT (14-59) U/L Alkaline Phosphatase (46-116) U/L Troponin I (0.00-0.056) ng/mL C-Reactive Protein (<1.0) mg/dL NT-Pro-B Natriuret Pep (0-125) pg/mL Total Protein (6.4-8.2) g/dl Albumin (3.4-5.0) g/dl Globulin gm/dL Albumin/Globulin Ratio (1-2) Urine Color (Yellow) Urine Appearance (Clear) Urine pH (5.0-8.0) Ur Specific [place] (1.005-1.030) Urine Protein (Negative) Urine Glucose (UA) (Negative) Urine Ketones (Negative) Urine Occult Blood (Negative) Urine Nitrite (Negative) Urine Bilirubin (Negative) Urine Urobilinogen (0.2-1.0) Ur Leukocyte Esterase (Negative) Urine RBC (0-5) /hpf Urine WBC (0-5) /hpf Ur Squamous Epith Cells (0-5) /hpf Urine Bacteria (FEW) /hpf Urine Mucus (FEW) /hpf Influenza Type A RNA (NEGATIVE) Influenza Type B RNA (NEGATIVE) SARS-CoV-2 RNA (CLAUDY) (NEGATIVE) Result Diagrams: 01/17/21 05:41 01/17/21 05:41 Sepsis Event Note - Focused Exam Vital Signs: Vital Signs Temp Pulse Resp BP Pulse Ox 01/17/21 00:01 36.9 C 78 18 95/56 L 93 L 01/16/21 20:51 37.3 C 90 18 111/55 L 93 L - Problem List (1) Acute respiratory failure SNOMED Code(s): 31850734 ICD Code: J96.00 - ACUTE RESPIRATORY FAILURE, UNSP W HYPOXIA OR HYPERCAPNIA Status: Acute Priority: High Current Visit: Yes Qualifiers: Respiratory failure complication: hypoxia Qualified Code(s): J96.01 - Acute respiratory failure with hypoxia (2) Pneumonia SNOMED Code(s): 462022037 ICD Code: J18.9 - PNEUMONIA, UNSPECIFIED ORGANISM Status: Acute Priority: High Current Visit: Yes Qualifiers: Pneumonia type: due to unspecified organism Laterality: unspecified laterality Lung location: unspecified part of lung Qualified Code(s): J18.9 - Pneumonia, unspecified organism (3) Chronic renal failure, stage 3 (moderate) SNOMED Code(s): 17674539, 005471122 ICD Code: N18.30 - CHRONIC KIDNEY DISEASE, STAGE 3 UNSPECIFIED Status: Chronic Current Visit: Yes Qualifiers: Chronic kidney disease stage 3 subtype: stage 3b (GFR 30-44) Qualified Code(s): N18.32 - Chronic kidney disease, stage 3b (4) Heart transplant status Status: Chronic Priority: High Current Visit: Yes (5) Kidney transplant recipient Status: Chronic Priority: High Current Visit: Yes (6) Leucocytosis SNOMED Code(s): 379453765, 877722360 ICD Code: D72.829 - ELEVATED WHITE BLOOD CELL COUNT, UNSPECIFIED Status: Acute Priority: High Current Visit: Yes Qualifiers: Leukocytosis type: bandemia Qualified Code(s): D72.825 - Bandemia Problem List Initiated/Reviewed/Updated: Yes Orders Last 24hrs: Active Orders 24 hr Category Date Time Status Admission Status [Patient Status] [ADT] Routine ADT 01/16/21 19:44 Active Activity as Tolerated [RC] .Routine Care 01/16/21 22:44 Active Oxygen Therapy Adult [Oxygen Therapy] [RC] ASDIRECTED Care 01/16/21 22:44 Active RT Aerosol Therapy [RC] ASDIRECTED Care 01/16/21 22:43 Active Regular Diet [DIET] Diet 01/17/21 Breakfast Active BLOOD CULTURE [MREF] Stat Lab 01/16/21 16:25 Received BLOOD CULTURE [MREF] Stat Lab 01/16/21 16:35 Received CMP [COMPREHENSIVE METABOLIC PN,CMP] [CHEM] Routine Lab 01/17/21 05:41 Rec eived MG [MAGNESIUM] [CHEM] Routine Lab 01/17/21 05:41 Received TACROLIMUS ([id number]), BLOOD [REF] Routine Lab 01/17/21 06:33 Ordered VIRAL CULTURE, GENERAL Stat Lab 01/16/21 19:50 Received Acetaminophen [TylenoL] Med 01/16/21 22:41 Active 650 mg PO Q4H PRN Albuterol [Proventil Neb Soln] Med 01/16/21 22:42 Active 2.5 mg NEB Q4H PRN Aspirin Med 01/17/21 09:00 Ordered 81 mg PO DAILY Levothyroxine Med 01/17/21 09:00 Ordered 75 mcg PO DAILY Ondansetron [Zofran] Med 01/16/21 22:40 Active 4 mg IVPUSH Q6H PRN Pantoprazole [ProTONIX] Med 01/17/21 09:00 Ordered 40 mg PO DAILY Prednisolone, Micronized [Prednisolone] Med 01/17/21 09:00 Ordered 5 mg pe PO DAILY Sodium Chloride 0.9% [Normal Saline] 1,000 ml Med 01/16/21 17:00 Active IV ASDIRECTED Tacrolimus Med 01/17/21 08:00 Ordered 1.5 mg PO QAM Tacrolimus [Prograf] Med 01/17/21 21:00 Ordered 1 mg PO BEDTIME amLODIPine [Norvasc] Med 01/17/21 09:00 Ordered 5 mg PO DAILY atorvaSTATin Med 01/17/21 09:00 Ordered 10 mg PO DAILY mycophenolate mofetiL [Cellcept] Med 01/17/21 09:00 Ordered 250 mg PO BID Blood Culture x2 Reflex Set [OM.PC] Stat Oth 01/16/21 15:42 Ordered Saline Lock Insert [OM.PC] Stat Oth 01/16/21 15:39 Ordered Code Status [Resuscitation Status] Routine Resus Stat 01/16/21 22:45 Ordered Medication Orders Acetaminophen (Acetaminophen 325 Mg Tab) 650 mg PO Q4H PRN PRN Reason: Pain/Fever Albuterol (Albuterol 0.083% 2.5 Mg/3 Ml Neb Soln) 2.5 mg NEB Q4H PRN PRN Reason: Shortness of Breath Amlodipine Besylate (Amlodipine 5 Mg Tab) 5 mg PO DAILY ARANZA Aspirin (Aspirin 81 Mg Tab.Chew) 81 mg PO DAILY ARANZA Sodium Chloride (Normal Saline) 1,000 mls @ 250 mls/hr IV ASDIRECTED ARANZA Last Admin: 01/16/21 17:14 Dose: 250 mls/hr Documented by: ROSALIND Levothyroxine Sodium (Levothyroxine 75 Mcg Tab) 75 mcg PO DAILY ARANZA Mycophenolate Mofetil (Mycophenolate Mofetil 250 Mg Cap) 250 mg PO BID ARANZA Non-Formulary Medication (Atorvastatin) 10 mg PO DAILY ARANZA Non-Formulary Medication (Prednisolone, Micronized [Prednisolone]) 5 mg pe PO DAILY ARANZA Non-Formulary Medication (Tacrolimus) 1.5 mg PO QAM ARANZA Ondansetron HCl (Ondansetron 4 Mg/2 Ml Sdv) 4 mg IVPUSH Q6H PRN PRN Reason: Nausea Pantoprazole Sodium (Pantoprazole 40 Mg Tab.Cr) 40 mg PO DAILY ARANZA Tacrolimus (Tacrolimus 1 Mg Cap) 1 mg PO BEDTIME ARANZA Assessment/Plan Comment:: The patient is a 65-year-old lady who had been admitted to acute hospitalization as an inpatient due to likely viral pneumonia. The patient has tested negative for COVID-19. The patient also is immune compromised because of medications taken for her heart and kidney transplant. Because of this I have elected to treat the patient with meropenem 1 g IV every 8 hours. The patient will be kept on oxygen titrated to keep her saturations around 92%. The patient will be kept on her antirejection drugs. I have also anticoagulated the patient with heparin and she does have decreased filtration from her transplanted kidney. I have also placed the patient on telemetry. She has been encouraged to ambulate. The patient will have her vital signs monitored and her antihypertensive medications will be adjusted as necessary. The patient should be appropriate for discharge in 1 to 2 days depending on her oxygen requirements and her symptomology. - Mortality Measure Prognosis:: Good
[2021-01-17] MEDS ORDERED: Acetaminophen 325 MG Tab PO PRN (07:36)
[2021-01-17] MEDS ORDERED: Tacrolimus 0.5 MG Cap PO SCH ×2 (08:00→09:00)
[2021-01-17] MEDS: Acetaminophen 325 MG Tab PO PRN (08:30)
[2021-01-17] MEDS: Aspirin 81 MG Tab.Chew PO SCH (08:31)
[2021-01-17] MEDS: amLODIPine 5 MG Tab PO SCH (08:32)
[2021-01-17] MEDS: Levothyroxine 75 MCG Tab PO SCH (08:32)
[2021-01-17] MEDS: Pantoprazole 40 MG Tab.CR PO SCH (08:32)
[2021-01-17] MEDS: atorvaSTATin 20 MG Tab PO SCH (08:32)
[2021-01-17] MEDS: predniSONE 5 MG Tab PO SCH (08:32)
[2021-01-17] MEDS: Mycophenolate Mofetil 250 MG Cap PO SCH ×2 (08:34→20:41)
[2021-01-17] MEDS ORDERED: Meropenem 1 GM in Sodium Chloride 0.9% 100 ML IV SCH (09:15)
[2021-01-17] MEDS ORDERED: Meropenem Premix 500 MG in Premix Bag 1 BAG IV SCH (10:00)
[2021-01-17] MEDS: Heparin Sodium 5,000 Units/ML Vial SUBCUT SCH ×2 (10:04→17:03)
[2021-01-17] MEDS: Tacrolimus 1 MG Cap PO SCH ×2 (10:05→21:04)
[2021-01-17] MEDS: Tacrolimus 0.5 MG Cap PO SCH (10:06)
[2021-01-17] MEDS: diphenhydrAMINE 25 MG Cap PO PRN (10:50)
[2021-01-17] MEDS ORDERED: diphenhydrAMINE 25 MG Cap PO ONE (15:29)
[2021-01-17] MEDS ORDERED: predniSONE 20 MG Tab PO ONE ×2 (16:56→20:53)
--- NOTE | 2021-01-17 17:17 | PCM.SN.2 ---
- Free Text/Narrative Note: The patient is a 65-year-old lady who had been admitted secondary to pneumonia in an immune compromised state. The patient is also been hypoxic. Her case is complicated by heart and kidney transplant and on immunosuppressive drugs. The patient developed itching of her hands and feet which was similar to her reacti on that she had with sulfa drugs. The meropenem that she had been on was discontinued. I spoke with infectious disease doctor in [place], Dr. Rob, who had recommended using broad-spectrum coverage with Zosyn 4.5 g IV every 8 hours and azithromycin 500 mg IV daily. I also spoke with the patient's outreach coordinator in [place], Dr. Simpson, and advised her of her patient and also spoke with her about V. tach runs with a transplanted heart. It was recommended that the patient have a 2D echocardiogram and viral testing for CMV. Those have been ordered.
[2021-01-17] MEDS: Azithromycin 500 MG in Sodium Chloride 0.9% 250 ML IV SCH (17:29)
[2021-01-17] MEDS: Piperacillin/Tazobactam 4.5 GM in Sodium Chloride 0.9% 100 ML IV SCH (18:41)
[2021-01-18] MEDS: diphenhydrAMINE 25 MG Cap PO PRN (01:18)
[2021-01-18] MEDS: Piperacillin/Tazobactam 4.5 GM in Sodium Chloride 0.9% 100 ML IV SCH ×2 (01:19→08:52)
[2021-01-18] MEDS: Heparin Sodium 5,000 Units/ML Vial SUBCUT SCH ×3 (01:22→17:00)
[2021-01-18] MEDS: Levothyroxine 75 MCG Tab PO SCH (06:03)
--- NOTE | 2021-01-18 07:05 | PCM.PN ---
- General Info Date of Service: 01/18/21 Admission Dx/Problem (Free Text): Admission Diagnosis/Problem Admission Diagnosis/Problem pneumonia complicated by immune suppressants, acute respiratory failure Subjective Update: The patient is a 65-year-old lady who was admitted secondary to pneumonia associated with immunocompromise state. The patient has a history of heart transplant and renal transplant. She is on immunosuppressant drugs. The patient is on her way to [place] and was not able to make the flight due to her shortness of breath and hypoxia. The patient had been aggressively treated with dual antibiotics however she developed allergic-like symptoms due to the Rocephin as well as the Zosyn. The patient has remained on a azithromycin. Respiratory viral panel is currently pending. She has a COVID-19 test that is negative. Patient says that she has itching of her hands and severe cough. The patient has denied any pain. Functional Status: Reports: Pain Controlled, Tolerating Diet. Denies: New Symptoms - Review of Systems General: Reports: Weakness HEENT: Reports: No Symptoms Pulmonary: Reports: Shortness of Breath, Cough Cardiovascular: Reports: No Symptoms Gastrointestinal: Reports: No Symptoms Genitourinary: Reports: No Symptoms Musculoskeletal: Reports: No Symptoms Skin: Reports: Other (Severe itching) Neurological: Reports: No Symptoms Psychiatric: Reports: No Symptoms - Patient Data Vitals - Most Recent: Last Vital Signs Temp 37.1 C 01/18/21 03:47 Pulse 88 01/18/21 03:47 Resp 18 01/18/21 03:47 BP 131/75 01/18/21 03:47 Pulse Ox 92 L 01/18/21 03:47 Weight - Most Recent: 60.373 kg I&O - Last 24 Hours: Intake & Output 01/17/21 01/18/21 01/18/21 22:59 06:59 14:59 Intake Total 600 1700 Output Total 500 100 Balance 100 1600 Med Orders - Current: Current Medications Acetaminophen (Acetaminophen 325 Mg Tab) 650 mg PO Q4H PRN PRN Reason: Pain/Fever Last Admin: 01/17/21 08:30 Dose: 650 mg Documented by: Albuterol (Albuterol 0.083% 2.5 Mg/3 Ml Neb Soln) 2.5 mg NEB Q4H PRN PRN Reason: Shortness of Breath Amlodipine Besylate (Amlodipine 5 Mg Tab) 5 mg PO DAILY [facility] Last Admin: 01/17/21 08:32 Dose: 5 mg Documented by: Ascorbic Acid (Ascorbic Acid 500 Mg Tab) 1,000 mg PO DAILY [facility] Aspirin (Aspirin 81 Mg Tab.Chew) 81 mg PO DAILY [facility] Last Admin: 01/17/21 08:31 Dose: 81 mg Documented by: Atorvastatin Calcium (Atorvastatin 20 Mg Tab) 10 mg PO DAILY [facility] Last Admin: 01/17/21 08:32 Dose: 10 mg Documented by: Cholecalciferol (Cholecalciferol (Vitamin D3) 25 Mcg Tab) 25 mcg PO BID [facility] Diphenhydramine HCl (Diphenhydramine 25 Mg Cap) 25 mg PO Q6HR PRN PRN Reason: Itching Last Admin: 01/18/21 01:18 Dose: 25 mg Documented by: Fish Oil (Fish Oil/[place]-3 Fatty Acids 1 Gm Cap) 1 gm PO BID [facility] Heparin Sodium (Porcine) (Heparin Sodium 5,000 Units/Ml Vial) 5,000 units SUBCUT Q8H [facility] Last Admin: 01/18/21 01:22 Dose: 5,000 units Documented by: Piperacillin Sod/Tazobactam (Sod 4.5 gm/ Sodium Chloride) 100 mls @ 25 mls/hr IV Q8H [facility] Last Admin: 01/18/21 01:19 Dose: 25 mls/hr Documented by: Azithromycin 500 mg/ Sodium (Chloride) 250 mls @ 250 mls/hr IV Q24H [facility] Last Admin: 01/17/21 17:29 Dose: 250 mls/hr Documented by: Levothyroxine Sodium (Levothyroxine 75 Mcg Tab) 75 mcg PO ACBREAKFAST [facility] Last Admin: 01/18/21 06:03 Dose: 75 mcg Documented by: Mycophenolate Mofetil (Mycophenolate Mofetil 250 Mg Cap) 250 mg PO BID [facility] Last Admin: 01/17/21 20:41 Dose: 250 mg Documented by: Tacrolimus 0.5 Mg (Cap) 0 each PO DAILY [facility] Last Admin: 01/17/21 10:06 Dose: 1 each Documented by: Ondansetron HCl (Ondansetron 4 Mg/2 Ml Sdv) 4 mg IVPUSH Q6H PRN PRN Reason: Nausea Pantoprazole Sodium (Pantoprazole 40 Mg Tab.Cr) 40 mg PO DAILY [facility] Last Admin: 01/17/21 08:32 Dose: 40 mg Documented by: Prednisone (Prednisone 5 Mg Tab) 5 mg PO DAILY [facility] Last Admin: 01/17/21 08:32 Dose: 5 mg Documented by: Tacrolimus (Tacrolimus 1 Mg Cap) 1 mg PO BEDTIME [facility] Last Admin: 01/17/21 21:04 Dose: 1 mg Documented by: Tacrolimus (Tacrolimus 1 Mg Cap) 1 mg PO DAILY [facility] Last Admin: 01/17/21 10:05 Dose: 1 mg Documented by: Vitamin E (Vitamin E (Br-Usies-Uscxkpdimu Acetate) 400 Unit Cap) 400 units PO BID [facility] Discontinued Medications Diphenhydramine HCl (Diphenhydramine 25 Mg Cap) 25 mg PO ONETIME ONE Stop: 01/17/21 15:30 Last Admin: 01/17/21 15:47 Dose: 25 mg Documented by: Sodium Chloride (Normal Saline) 1,000 mls @ 250 mls/hr IV ASDIRECTED [facility] Last Admin: 01/16/21 17:14 Dose: 250 mls/hr Documented by: Magnesium Sulfate 4 gm/ Premix 50 mls @ 12.5 mls/hr IV ONETIME ONE Stop: 01/16/21 20:58 Last Admin: 01/16/21 17:16 Dose: 12.5 mls/hr Documented by: Meropenem/Sodium Chloride 500 (mg/ Premix) 50 mls @ 100 mls/hr IV ONETIME ONE Stop: 01/16/21 20:13 Last Admin: 01/16/21 20:26 Dose: 100 mls/hr Documented by: Meropenem/Sodium Chloride 500 (mg/ Premix) 50 mls @ 100 mls/hr IV Q8H [facility] Last Admin: 01/17/21 10:04 Dose: 100 mls/hr Documented by: Ondansetron HCl (Ondansetron 4 Mg/2 Ml Sdv) 4 mg IVPUSH ONETIME ONE Stop: 01/16/21 16:57 Last Admin: 01/16/21 17:15 Dose: 4 mg Documented by: Tacrolimus 0.5 Mg (Cap) 1.5 each PO QAM [facility] Last Admin: 01/17/21 11:48 Dose: Not Given Documented by: Prednisone (Prednisone 20 Mg Tab) 20 mg PO ONETIME ONE Stop: 01/17/21 16:57 Last Admin: 01/17/21 17:03 Dose: 20 mg Documented by: Prednisone (Prednisone 20 Mg Tab) 20 mg PO ONETIME ONE Stop: 01/17/21 20:54 Last Admin: 01/17/21 21:03 Dose: 20 mg Documented by: Prednisone (Prednisone 5 Mg Tab) 5 mg PO DAILY [facility] Sodium Chloride (Sodium Chloride 0.9% 10 Ml Syringe) 10 ml FLUSH ASDIRECTED PRN PRN Reason: Keep Vein Open Last Admin: 01/16/21 16:03 Dose: 10 ml Documented by: - Exam Quality Assessment: Supplemental Oxygen, DVT Prophylaxis General: Alert, Oriented, Cooperative, Mild Distress HEENT: Pupils Equal, Pupils Reactive, EOMI, Mucous Membr. Moist/[place]ck: Supple, Trachea Midline Lungs: Clear to Auscultation, Normal Respiratory Effort Cardiovascular: Regular Rate, Regular Rhythm GI/Abdominal Exam: Normal Bowel Sounds, Soft, Non-Tender, No Distention Back Exam: Normal Inspection, Full Range of Motion Extremities: Normal Inspection, Normal Range of Motion, No Pedal Edema Skin: Warm, Dry, Intact, Other (Excoriations right dorsal hand) Neurological: No New Focal Deficit, Normal Gait, Normal Speech Psy/Mental Status: Alert, Normal Affect, Normal Mood - Patient Data Result Diagrams: 01/18/21 05:49 01/18/21 05:49 Sepsis Event Note - Evaluation Sepsis Screening Result: No Definite Risk - Focused Exam Vital Signs: Vital Signs Temp Pulse Resp BP Pulse Ox Pulse Ox 01/18/21 03:47 37.1 C 88 18 131/75 92 L 01/18/21 01:26 37.1 C 84 18 123/68 93 L 01/17/21 21:06 37.3 C 83 18 122/63 94 L 01/17/21 20:38 93 L - Problem List & Annotations (1) Acute respiratory failure SNOMED Code(s): 80583841 Code(s): J96.00 - ACUTE RESPIRATORY FAILURE, UNSP W HYPOXIA OR HYPERCAPNIA Status: Acute Priority: High Current Visit: Yes Qualifiers: Respiratory failure complication: hypoxia Qualified Code(s): J96.01 - Acute respiratory failure with hypoxia (2) Pneumonia SNOMED Code(s): 770478824 Code(s): J18.9 - PNEUMONIA, UNSPECIFIED ORGANISM Status: Acute Priority: High Current Visit: Yes Qualifiers: Pneumonia type: due to unspecified organism Laterality: unspecified laterality Lung location: unspecified part of lung Qualified Code(s): J18.9 - Pneumonia, unspecified organism (3) Chronic renal failure, stage 3 (moderate) SNOMED Code(s): 19396982, 171841356 Code(s): N18.30 - CHRONIC KIDNEY DISEASE, STAGE 3 UNSPECIFIED Status: Chronic Current Visit: Yes Qualifiers: Chronic kidney disease stage 3 subtype: stage 3b (GFR 30-44) Qualified Code(s): N18.32 - Chronic kidney disease, stage 3b (4) Heart transplant status Status: Chronic Priority: High Current Visit: Yes (5) Kidney transplant recipient Status: Chronic Priority: High Current Visit: Yes (6) Leucocytosis SNOMED Code(s): 283296782, 706784943 Code(s): D72.829 - ELEVATED WHITE BLOOD CELL COUNT, UNSPECIFIED Status: Acute Priority: High Current Visit: Yes Qualifiers: Leukocytosis type: bandemia Qualified Code(s): D72.825 - Bandemia - Problem List Review Problem List Initiated/Reviewed/Updated: Yes - My Orders Last 24 Hours: My Active Orders 01/17/21 Breakfast Regular Diet [DIET] Levothyroxine 75 mcg PO ACBREAKFAST 01/17/21 09:00 Aspirin 81 mg PO DAILY Pantoprazole [ProTONIX] 40 mg PO DAILY amLODIPine [Norvasc] 5 mg PO DAILY atorvaSTATin [Lipitor] 10 mg PO DAILY mycophenolate mofetiL [Cellcept] 250 mg PO BID predniSONE 5 mg PO DAILY 01/17/21 10:00 Heparin Sodium 5,000 units SUBCUT Q8H Non-Formulary Medication [NF Drug] 0 each PO DAILY Tacrolimus [Prograf] 1 mg PO DAILY 01/17/21 10:26 diphenhydrAMINE [Benadryl] 25 mg PO Q6HR PRN 01/17/21 17:00 CMV QUANT DNA PCR (PLASMA) [REF] Routine 01/17/21 17:15 Azithromycin [Zithromax] 500 mg Sodium Chloride 0.9% [Normal Saline AdvBag] 250 ml IV Q24H Piperacillin/Tazobactam [Piperacil-Tazobact] 4.5 gm Sodium Chloride 0.9% [Normal Saline AdvBag] 100 ml IV Q8H 01/17/21 21:00 Tacrolimus [Prograf] 1 mg PO BEDTIME 01/18/21 05:49 CBC WITH AUTO DIFF [HEME] Routine COMPREHENSIVE METABOLIC PN,CMP [CHEM] Routine 01/18/21 06:13 CORONAVIRUS COVID-19 CLAUDY [MOLEC] Routine 01/18/21 09:00 Ascorbic Acid [Vitamin C] 1,000 mg PO DAILY Cholecalciferol (Vitamin D3) [Vitamin D3] 25 mcg PO BID Fish Oil/[place]-3 Fatty Acids [Fish Oil] 1 gm PO BID Vitamin E (dl, acetate) [Vitamin E] 400 units PO BID - Plan Plan:: The patient is a 65-year-old lady who had been admitted to acute hospitalization as an inpatient due to likely viral pneumonia. The patient has tested negative for COVID-19. The patient also is immune compromised because of medications taken for her heart and kidney transplant. Because of this I have elected to treat the patient with meropenem 1 g IV every 8 hours. The patient will be kept on oxygen titrated to keep her saturations around 92%. The patient will be kept on her antirejection drugs. I have also anticoagulated the patient with heparin and she does have decreased filtration from her transplanted kidney. I have also placed the patient on telemetry. She has been encouraged to ambulate. The patient will have her vital signs monitored and her antihypertensive medications will be adjusted as necessary. The patient should be appropriate for discharge in 1 to 2 days depending on her oxygen requirements and her symptomology. 01/18/2021 The patient is a 65-year-old lady who was admitted to acute hospitalization and aggressively treated for viral/bacterial pneumonia due to her immunocompromise state. I have maintain close contact with the patient's transplant physician as well as her cardiology coordinator and have advised them at various times on the patient's status. I have also called infectious disease in [place] with advice to best handle antibiotics for this patient. The patient had been retained in hospitalization secondary to bed availability. The patient is also anticoagulated on heparin. The patient's oxygen saturations will be maintained at 92%. She will continue on a azithromycin although the Zosyn has been discontinued. Infectious disease doctor does not recommend antiviral medicatio ns. I have also treated the patient's itching symptoms with Atarax and occasional Ativan as necessary for anxiety. She will continue on telemetry. Once the patient is oxygen demands have improved she will be appropriate for discharge. Patient will also be kept on her diet as tolerated.
[2021-01-18] MEDS: Cholecalciferol (Vitamin D3) 25 MCG Tab PO SCH ×2 (08:46→20:08)
[2021-01-18] MEDS: predniSONE 5 MG Tab PO SCH (08:46)
[2021-01-18] MEDS: Pantoprazole 40 MG Tab.CR PO SCH (08:46)
[2021-01-18] MEDS: Vitamin E (dl-alpha-tocopherol acetate) 400 Unit Cap PO SCH ×2 (08:46→20:08)
[2021-01-18] MEDS: atorvaSTATin 20 MG Tab PO SCH (08:46)
[2021-01-18] MEDS: Fish Oil/Omega-3 Fatty Acids 1 Gm Cap PO SCH ×2 (08:46→20:08)
[2021-01-18] MEDS: Aspirin 81 MG Tab.Chew PO SCH (08:47)
[2021-01-18] MEDS: Ascorbic Acid 500 MG Tab PO SCH (08:47)
[2021-01-18] MEDS: amLODIPine 5 MG Tab PO SCH (08:47)
[2021-01-18] MEDS: Tacrolimus 1 MG Cap PO SCH ×2 (08:50→20:09)
[2021-01-18] MEDS: Tacrolimus 0.5 MG Cap PO SCH (08:51)
[2021-01-18] MEDS: Mycophenolate Mofetil 250 MG Cap PO SCH ×2 (08:52→20:08)
[2021-01-18] MEDS ORDERED: predniSONE 5 MG Tab PO SCH (09:00)
--- NOTE | 2021-01-18 09:36 | CR ---
Chest: Frontal view of the chest was obtained. Comparison: Prior CT chest of 01/16/21 as well as chest x-ray also performed on that same day (01/16/21). Slight increasing density is seen within the right upper lung from prior exam presumably representing worsening pneumonia. Please correlate. Left lung is unchanged. Heart size and mediastinum are unchanged. Previous sternotomy is noted. Bony structures show nothing acute. Impression: 1. Increasing density within the right upper chest presumably due to worsening pneumonia. Please correlate if this matches patient's clinical symptoms. Diagnostic code #3
[2021-01-18] MEDS: Benzonatate 100 MG Cap PO PRN (10:04)
[2021-01-18] MEDS ORDERED: LORazepam 0.5 MG Tab PO PRN (10:12)
[2021-01-18] MEDS ORDERED: hydrOXYzine HCl 10 MG Tab PO PRN (10:13)
[2021-01-18] MEDS: Codeine/guaiFENesin 10-100 MG/5 ML Syrup 5 ML Cup PO PRN (15:09)
[2021-01-18] MEDS: Azithromycin 500 MG in Sodium Chloride 0.9% 250 ML IV SCH (16:31)
[2021-01-18 19:42] LABS: BORDETELLA PARAPERT IS1001 Not Detected (Not Detected)
[2021-01-19] MEDS: Heparin Sodium 5,000 Units/ML Vial SUBCUT SCH ×3 (01:09→18:00)
[2021-01-19] MEDS: Levothyroxine 75 MCG Tab PO SCH (05:08)
[2021-01-19] MEDS: Cholecalciferol (Vitamin D3) 25 MCG Tab PO SCH ×2 (08:30→20:23)
[2021-01-19] MEDS: Vitamin E (dl-alpha-tocopherol acetate) 400 Unit Cap PO SCH ×2 (08:30→20:23)
[2021-01-19] MEDS: atorvaSTATin 20 MG Tab PO SCH (08:30)
[2021-01-19] MEDS: amLODIPine 5 MG Tab PO SCH (08:30)
[2021-01-19] MEDS: Fish Oil/Omega-3 Fatty Acids 1 Gm Cap PO SCH ×2 (08:31→20:23)
[2021-01-19] MEDS: Ascorbic Acid 500 MG Tab PO SCH (08:31)
[2021-01-19] MEDS: Pantoprazole 40 MG Tab.CR PO SCH (08:31)
[2021-01-19] MEDS: predniSONE 5 MG Tab PO SCH (08:31)
[2021-01-19] MEDS: Aspirin 81 MG Tab.Chew PO SCH (08:31)
[2021-01-19] MEDS: Tacrolimus 1 MG Cap PO SCH ×2 (08:36→20:23)
[2021-01-19] MEDS: Tacrolimus 0.5 MG Cap PO SCH (08:36)
[2021-01-19] MEDS: Mycophenolate Mofetil 250 MG Cap PO SCH ×2 (08:41→20:23)
[2021-01-19] MEDS: Acetaminophen 325 MG Tab PO PRN (09:22)
[2021-01-19] MEDS: Benzonatate 100 MG Cap PO PRN (15:18)
[2021-01-19] MEDS: Azithromycin 250 MG Tab PO ONE ×2 (15:24→16:12)
--- NOTE | 2021-01-19 16:14 | PCM.PN ---
- General Info Date of Service: 01/19/21 Admission Dx/Problem (Free Text): Admission Diagnosis/Problem Admission Diagnosis/Problem pneumonia complicated by immune suppressants, acute respiratory failure Subjective Update: The patient is a 65-year-old lady who was admitted secondary to pneumonia associated with immunocompromise state. The patient has a history of heart transplant and renal transplant. Patient states that she is little groggy today, but she did get Atarax and lorazepam to help her sleep last night. She denies any fever or chills. She is currently on azithromycin. Functional Status: Reports: Pain Controlled - Review of Systems General: Reports: No Symptoms HEENT: Reports: No Symptoms Pulmonary: Reports: No Symptoms Cardiovascular: Reports: No Symptoms Gastrointestinal: Reports: No Symptoms Musculoskeletal: Reports: No Symptoms - Patient Data Vitals - Most Recent: Last Vital Signs Temp 96.6 F L 01/19/21 12:00 Pulse 80 01/19/21 12:00 Resp 18 01/19/21 12:00 BP 121/82 01/19/21 12:00 Pulse Ox 92 L 01/19/21 14:12 Weight - Most Recent: 131 lb 9.6 oz I&O - Last 24 Hours: Intake & Output 01/19/21 01/19/21 01/19/21 06:59 14:59 22:59 Intake Total 400 0 900 Output Total 1250 600 Balance -850 0 300 Lab Results Last 24 Hours: Laboratory Results - last 24 hr 01/18/21 01/19/21 01/19/21 Range/Units 06:13 05:17 05:17 WBC 9.16 (3.98-10.04) K/mm3 RBC 3.82 L (3.98-5.22) M/mm3 Hgb 10.7 L (11.2-15.7) gm/dl Hct 34.3 (34.1-44.9) % MCV 89.8 (79.4-94.8) fl MCH 28.0 (25.6-32.2) pg MCHC 31.2 L (32.2-35.5) g/dl RDW Std Deviation 51.2 H (36.4-46.3) fL Plt Count 176 L (182-369) K/mm3 MPV 9.9 (9.4-12.3) fl Neut % (Auto) 80.6 H (34.0-71.1) % Lymph % (Auto) 14.1 L (19.3-51.7) % [place] % (Auto) 4.5 L (4.7-12.5) % Eos % (Auto) 0.5 L (0.7-5.8) Baso % (Auto) 0.2 (0.1-1.2) % Neut # (Auto) 7.38 H (1.56-6.13) K/mm3 Lymph # (Auto) 1.29 (1.18-3.74) K/mm3 [place] # (Auto) 0.41 H (0.24-0.36) K/mm3 Eos # (Auto) 0.05 (0.04-0.36) K/mm3 Baso # (Auto) 0.02 (0.01-0.08) K/mm3 Sodium 139 (136-145) mEq/L Potassium 4.1 (3.5-5.1) mEq/L Chloride 105 (98-107) mEq/L Carbon Dioxide 26 (21-32) mEq/L Anion Gap 12.1 (5-15) BUN 14 (7-18) mg/dL Creatinine 0.7 (0.55-1.02) mg/dL Est Cr Clr Drug Dosing 69.19 mL/min Estimated GFR (MDRD) > 60 (>60) mL/min BUN/Creatinine Ratio 20.0 H (14-18) Glucose 114 H (70-99) mg/dL Calcium 8.3 L (8.5-10.1) mg/dL Total Bilirubin 0.7 (0.2-1.0) mg/dL AST 19 (15-37) U/L ALT 21 (14-59) U/L Alkaline Phosphatase 38 L (46-116) U/L Total Protein 6.6 (6.4-8.2) g/dl Albumin 3.3 L (3.4-5.0) g/dl Globulin 3.3 gm/dL Albumin/Globulin Ratio 1.0 (1-2) Adenovirus (PCR) Not detected (Not Detected) B. pertussis DNA (PCR) Not detected (Not Detected) B.parapertussis DNA PCR Not detected (Not Detected) C. pneumoniae DNA (PCR) Not detected (Not Detected) Coronavirus OC43 (PCR) Not detected (Not Detected) Coronavirus HKU1 (PCR) Not detected (Not Detected) Coronavirus 229E (PCR) Not detected (Not Detected) Coronavirus NL63 (PCR) Not detected (Not Detected) Human Metapneumovir PCR Not detected (Not Detected) Influenza A (RT-PCR) Not detected (Not Detected) Influenza B (RT-PCR) Not detected (Not Detected) M. pneumoniae (PCR) Not detected (Not Detected) Parainfluenza 1 (PCR) Not detected (Not Detected) Parainfluenza 2 (PCR) Not detected (Not Detected) Parainfluenza 3 (PCR) Detected H (Not Detected) Parainfluenza 4 (PCR) Not detected (Not Detected) RSV (PCR) Not detected (Not Detected) Entero/Rhino (PCR) Not detected (Not Detected) SARS-CoV-2 (PCR) Not detected (Not Detected) Luis Results Last 24 Hours: Microbiology 01/16/21 16:35 Blood Culture - Preliminary Blood - Venous - Lab Draw 01/16/21 16:25 Blood Culture - Preliminary Blood - Venous Med Orders - Current: Current Medications Acetaminophen (Acetaminophen 325 Mg Tab) 650 mg PO Q4H PRN PRN Reason: Pain/Fever Last Admin: 01/19/21 09:22 Dose: 650 mg Documented by: Albuterol (Albuterol 0.083% 2.5 Mg/3 Ml Neb Soln) 2.5 mg NEB Q4H PRN PRN Reason: Shortness of Breath Amlodipine Besylate (Amlodipine 5 Mg Tab) 5 mg PO DAILY [facility] Last Admin: 01/19/21 08:30 Dose: 5 mg Documented by: Ascorbic Acid (Ascorbic Acid 500 Mg Tab) 1,000 mg PO DAILY [facility] Last Admin: 01/19/21 08:31 Dose: 1,000 mg Documented by: Aspirin (Aspirin 81 Mg Tab.Chew) 81 mg PO DAILY [facility] Last Admin: 01/19/21 08:31 Dose: 81 mg Documented by: Atorvastatin Calcium (Atorvastatin 20 Mg Tab) 10 mg PO DAILY [facility] Last Admin: 01/19/21 08:30 Dose: 10 mg Documented by: Benzonatate (Benzonatate 100 Mg Cap) 100 mg PO TID PRN PRN Reason: Cough Last Admin: 01/19/21 15:18 Dose: 100 mg Documented by: Cholecalciferol (Cholecalciferol (Vitamin D3) 25 Mcg Tab) 25 mcg PO BID [facility] Last Admin: 01/19/21 08:30 Dose: 25 mcg Documented by: Diphenhydramine HCl (Diphenhydramine 25 Mg Cap) 25 mg PO Q6HR PRN PRN Reason: Itching Last Admin: 01/18/21 01:18 Dose: 25 mg Documented by: Fish Oil (Fish Oil/[place]-3 Fatty Acids 1 Gm Cap) 1 gm PO BID [facility] Last Admin: 01/19/21 08:31 Dose: 1 gm Documented by: Guaifenesin/Codeine Phosphate (Codeine/Guaifenesin 10-100 Mg/5 Ml Syrup 5 Ml Cup) 10 ml PO Q4H PRN PRN Reason: Cough Last Admin: 01/18/21 15:09 Dose: 10 ml Documented by: Heparin Sodium (Porcine) (Heparin Sodium 5,000 Units/Ml Vial) 5,000 units SUBCUT Q8H [facility] Last Admin: 01/19/21 10:28 Dose: 5,000 units Documented by: Hydroxyzine HCl (Hydroxyzine Hcl 10 Mg Tab) 10 mg PO Q8H PRN PRN Reason: Itching Last Admin: 01/18/21 15:34 Dose: 10 mg Documented by: Levothyroxine Sodium (Levothyroxine 75 Mcg Tab) 75 mcg PO ACBREAKFAST [facility] Last Admin: 01/19/21 05:08 Dose: 75 mcg Documented by: Lorazepam (Lorazepam 0.5 Mg Tab) 0.5 mg PO Q4H PRN PRN Reason: Anxiety Last Admin: 01/18/21 12:57 Dose: 0.5 mg Documented by: Mycophenolate Mofetil (Mycophenolate Mofetil 250 Mg Cap) 250 mg PO BID [facility] Last Admin: 01/19/21 08:41 Dose: 250 mg Documented by: Tacrolimus 0.5 Mg (Cap) 0 each PO DAILY [facility] Last Admin: 01/19/21 08:36 Dose: 1 each Documented by: Ondansetron HCl (Ondansetron 4 Mg/2 Ml Sdv) 4 mg IVPUSH Q6H PRN PRN Reason: Nausea Pantoprazole Sodium (Pantoprazole 40 Mg Tab.Cr) 40 mg PO DAILY [facility] Last Admin: 01/19/21 08:31 Dose: 40 mg Documented by: Prednisone (Prednisone 5 Mg Tab) 5 mg PO DAILY [facility] Last Admin: 01/19/21 08:31 Dose: 5 mg Documented by: Tacrolimus (Tacrolimus 1 Mg Cap) 1 mg PO BEDTIME [facility] Last Admin: 01/18/21 20:09 Dose: 1 mg Documented by: Tacrolimus (Tacrolimus 1 Mg Cap) 1 mg PO DAILY [facility] Last Admin: 01/19/21 08:36 Dose: 1 mg Documented by: Vitamin E (Vitamin E (Qi-Ybnzo-Uxcwuobooo Acetate) 400 Unit Cap) 400 units PO BID [facility] Last Admin: 01/19/21 08:30 Dose: 400 units Documented by: Discontinued Medications Azithromycin (Azithromycin 250 Mg Tab) 500 mg PO ONETIME ONE Stop: 01/19/21 17:01 Last Admin: 01/19/21 15:24 Dose: 500 mg Documented by: Diphenhydramine HCl (Diphenhydramine 25 Mg Cap) 25 mg PO ONETIME ONE Stop: 01/17/21 15:30 Last Admin: 01/17/21 15:47 Dose: 25 mg Documented by: Sodium Chloride (Normal Saline) 1,000 mls @ 250 mls/hr IV ASDIRECTED [facility] Last Admin: 01/16/21 17:14 Dose: 250 mls/hr Documented by: Magnesium Sulfate 4 gm/ Premix 50 mls @ 12.5 mls/hr IV ONETIME ONE Stop: 01/16/21 20:58 Last Admin: 01/16/21 17:16 Dose: 12.5 mls/hr Documented by: Meropenem/Sodium Chloride 500 (mg/ Premix) 50 mls @ 100 mls/hr IV ONETIME ONE Stop: 01/16/21 20:13 Last Admin: 01/16/21 20:26 Dose: 100 mls/hr Documented by: Meropenem/Sodium Chloride 500 (mg/ Premix) 50 mls @ 100 mls/hr IV Q8H [facility] Last Admin: 01/17/21 10:04 Dose: 100 mls/hr Documented by: Piperacillin Sod/Tazobactam (Sod 4.5 gm/ Sodium Chloride) 100 mls @ 25 mls/hr IV Q8H [facility] Last Admin: 01/18/21 08:52 Dose: Not Given Documented by: Azithromycin 500 mg/ Sodium (Chloride) 250 mls @ 250 mls/hr IV Q24H [facility] Last Admin: 01/18/21 16:31 Dose: 250 mls/hr Documented by: Ondansetron HCl (Ondansetron 4 Mg/2 Ml Sdv) 4 mg IVPUSH ONETIME ONE Stop: 01/16/21 16:57 Last Admin: 01/16/21 17:15 Dose: 4 mg Documented by: Tacrolimus 0.5 Mg (Cap) 1.5 each PO QAM [facility] Last Admin: 01/17/21 11:48 Dose: Not Given Documented by: Prednisone (Prednisone 20 Mg Tab) 20 mg PO ONETIME ONE Stop: 01/17/21 16:57 Last Admin: 01/17/21 17:03 Dose: 20 mg Documented by: Prednisone (Prednisone 20 Mg Tab) 20 mg PO ONETIME ONE Stop: 01/17/21 20:54 Last Admin: 01/17/21 21:03 Dose: 20 mg Documented by: Prednisone (Prednisone 5 Mg Tab) 5 mg PO DAILY [facility] Sodium Chloride (Sodium Chloride 0.9% 10 Ml Syringe) 10 ml FLUSH ASDIRECTED PRN PRN Reason: Keep Vein Open Last Admin: 01/16/21 16:03 Dose: 10 ml Documented by: - Exam Quality Assessment: Supplemental Oxygen General: Alert, Oriented HEENT: Pupils Equal, Mucous Membr. Moist/[place] Lungs: Normal Respiratory Effort, Rhonchi (Right-sided rhonchi) Cardiovascular: Regular Rate, Regular Rhythm GI/Abdominal Exam: Normal Bowel Sounds, Soft, Non-Tender, No Distention Extremities: Normal Inspection, No Pedal Edema, Normal Capillary Refill Psy/Mental Status: Alert, Normal Affect, Normal Mood - Patient Data Lab Results Last 24 hrs: Laboratory Results - last 24 hr 01/18/21 01/19/21 01/19/21 Range/Units 06:13 05:17 05:17 WBC 9.16 (3.98-10.04) K/mm3 RBC 3.82 L (3.98-5.22) M/mm3 Hgb 10.7 L (11.2-15.7) gm/dl Hct 34.3 (34.1-44.9) % MCV 89.8 (79.4-94.8) fl MCH 28.0 (25.6-32.2) pg MCHC 31.2 L (32.2-35.5) g/dl RDW Std Deviation 51.2 H (36.4-46.3) fL Plt Count 176 L (182-369) K/mm3 MPV 9.9 (9.4-12.3) fl Neut % (Auto) 80.6 H (34.0-71.1) % Lymph % (Auto) 14.1 L (19.3-51.7) % [place] % (Auto) 4.5 L (4.7-12.5) % Eos % (Auto) 0.5 L (0.7-5.8) Baso % (Auto) 0.2 (0.1-1.2) % Neut # (Auto) 7.38 H (1.56-6.13) K/mm3 Lymph # (Auto) 1.29 (1.18-3.74) K/mm3 [place] # (Auto) 0.41 H (0.24-0.36) K/mm3 Eos # (Auto) 0.05 (0.04-0.36) K/mm3 Baso # (Auto) 0.02 (0.01-0.08) K/mm3 Sodium 139 (136-145) mEq/L Potassium 4.1 (3.5-5.1) mEq/L Chloride 105 (98-107) mEq/L Carbon Dioxide 26 (21-32) mEq/L Anion Gap 12.1 (5-15) BUN 14 (7-18) mg/dL Creatinine 0.7 (0.55-1.02) mg/dL Est Cr Clr Drug Dosing 69.19 mL/min Estimated GFR (MDRD) > 60 (>60) mL/min BUN/Creatinine Ratio 20.0 H (14-18) Glucose 114 H (70-99) mg/dL Calcium 8.3 L (8.5-10.1) mg/dL Total Bilirubin 0.7 (0.2-1.0) mg/dL AST 19 (15-37) U/L ALT 21 (14-59) U/L Alkaline Phosphatase 38 L (46-116) U/L Total Protein 6.6 (6.4-8.2) g/dl Albumin 3.3 L (3.4-5.0) g/dl Globulin 3.3 gm/dL Albumin/Globulin Ratio 1.0 (1-2) Adenovirus (PCR) Not detected (Not Detected) B. pertussis DNA (PCR) Not detected (Not Detected) B.parapertussis DNA PCR Not detected (Not Detected) C. pneumoniae DNA (PCR) Not detected (Not Detected) Coronavirus OC43 (PCR) Not detected (Not Detected) Coronavirus HKU1 (PCR) Not detected (Not Detected) Coronavirus 229E (PCR) Not detected (Not Detected) Coronavirus NL63 (PCR) Not detected (Not Detected) Human Metapneumovir PCR Not detected (Not Detected) Influenza A (RT-PCR) Not detected (Not Detected) Influenza B (RT-PCR) Not detected (Not Detected) M. pneumoniae (PCR) Not detected (Not Detected) Parainfluenza 1 (PCR) Not detected (Not Detected) Parainfluenza 2 (PCR) Not detected (Not Detected) Parainfluenza 3 (PCR) Detected H (Not Detected) Parainfluenza 4 (PCR) Not detected (Not Detected) RSV (PCR) Not detected (Not Detected) Entero/Rhino (PCR) Not detected (Not Detected) SARS-CoV-2 (PCR) Not detected (Not Detected) Result Diagrams: 01/19/21 05:17 01/19/21 05:17 Luis Results Last 24 hrs: Microbiology 01/16/21 16:35 Blood Culture - Preliminary Blood - Venous - Lab Draw 01/16/21 16:25 Blood Culture - Preliminary Blood - Venous Sepsis Event Note - Evaluation Sepsis Screening Result: No Definite Risk - Focused Exam Vital Signs: Vital Signs Temp Pulse Resp BP Pulse Ox Pulse Ox Pulse Ox 01/19/21 14:12 92 L 01/19/21 13:38 94 L 01/19/21 12:00 96.6 F L 80 18 121/82 93 L 01/19/21 08:45 90 L 01/19/21 08:30 109/74 01/19/21 08:23 98.2 F 75 20 109/74 93 L 01/19/21 05:06 97.9 F 76 20 125/77 95 - Problem List & Annotations (1) Pneumonia due to parainfluenza virus SNOMED Code(s): 58663773 Code(s): J12.2 - PARAINFLUENZA VIRUS PNEUMONIA Status: Acute Current Visit: Yes (2) Pneumonia SNOMED Code(s): 892916237 Code(s): J18.9 - PNEUMONIA, UNSPECIFIED ORGANISM Status: Acute Priority: High Current Visit: Yes Qualifiers: Pneumonia type: due to unspecified organism Laterality: unspecified laterality Lung location: unspecified part of lung Qualified Code(s): J18.9 - Pneumonia, unspecified organism (3) Chronic renal failure, stage 3 (moderate) SNOMED Code(s): 14323413, 198924630 Code(s): N18.30 - CHRONIC KIDNEY DISEASE, STAGE 3 UNSPECIFIED Status: Chronic Current Visit: Yes Qualifiers: Chronic kidney disease stage 3 subtype: stage 3b (GFR 30-44) Qualified Code(s): N18.32 - Chronic kidney disease, stage 3b (4) Heart transplant status Status: Chronic Priority: High Current Visit: Yes (5) Kidney transplant recipient Status: Chronic Priority: High Current Visit: Yes - Problem List Review Problem List Initiated/Reviewed/Updated: Yes - My Orders Last 24 Hours: My Active Orders 01/19/21 08:45 Incentive Spirometry [RT Incentive Spirometry] [RC] Q1HWA - Plan Plan:: The patient is a 65-year-old lady who had been admitted to acute hospitalization as an inpatient due to likely viral pneumonia. The patient has tested negative for COVID-19. The patient also is immune compromised because of medications taken for her heart and kidney transplant. Because of this I have elected to treat the patient with meropenem 1 g IV every 8 hours. The patient will be kept on oxygen titrated to keep her saturations around 92%. The patient will be kept on her antirejection drugs. I have also anticoagulated the patient with heparin and she does have decreased filtration from her transplanted kidney. I have also placed the patient on telemetry. She has been encouraged to ambulate. The patient will have her vital signs monitored and her antihypertensive medications will be adjusted as necessary. The patient should be appropriate for discharge in 1 to 2 days depending on her oxygen requirements and her symptomology. 01/18/2021 The patient is a 65-year-old lady who was admitted to acute hospitalization and aggressively treated for viral/bacterial pneumonia due to her immunocompromise state. I have maintain close contact with the patient's transplant physician as well as her public information coordinator and have advised them at various times on the patient's status. I have also called infectious disease in [place] with advice to best handle antibiotics for this patient. The patient had been retained in hospitalization secondary to bed availability. The patient is also anticoagulated on heparin. The patient's oxygen saturations will be maintained at 92%. She will continue on a azithromycin although the Zosyn has been discontinued. Infectious disease doctor does not recommend antiviral medications. I have also treated the patient's itching symptoms with Atarax and occasional Ativan as necessary for anxiety. She will continue on telemetry. Once the patient is oxygen demands have improved she will be appropriate for di anderson. Patient will also be kept on her diet as tolerated. 01/19/2021 65-year-old female with a heart lung transplant admitted for right upper lobe pneumonia and hypoxemia. Viral panel returned with positive parainfluenza 3. Patient has been progressively getting better and this morning was only on 2 L nasal cannula. She is also feeling stronger. White count is 9.2, hemoglobin 10.7, normal electrolytes and kidney function. Patient is on third day of azithromycin and we will finish the course of azithromycin, 3 days, in case, with her immunodeficient state, she has a secondary bacterial pneumonia in that right upper lobe. Plan for discharge when patient is stable off oxygen.
[2021-01-19] MEDS: Codeine/guaiFENesin 10-100 MG/5 ML Syrup 5 ML Cup PO PRN (19:26)
[2021-01-20] MEDS: Acetaminophen 325 MG Tab PO PRN ×4 (01:14→21:00)
[2021-01-20] MEDS: Benzonatate 100 MG Cap PO PRN ×3 (01:14→21:00)
[2021-01-20] MEDS: Heparin Sodium 5,000 Units/ML Vial SUBCUT SCH ×3 (01:14→17:56)
[2021-01-20] MEDS: Levothyroxine 75 MCG Tab PO SCH (05:18)
[2021-01-20] MEDS: Codeine/guaiFENesin 10-100 MG/5 ML Syrup 5 ML Cup PO PRN (05:18)
[2021-01-20] MEDS: predniSONE 5 MG Tab PO SCH (09:36)
[2021-01-20] MEDS: Cholecalciferol (Vitamin D3) 25 MCG Tab PO SCH ×2 (09:36→20:45)
[2021-01-20] MEDS: Vitamin E (dl-alpha-tocopherol acetate) 400 Unit Cap PO SCH ×2 (09:37→20:45)
[2021-01-20] MEDS: Ascorbic Acid 500 MG Tab PO SCH (09:37)
[2021-01-20] MEDS: Pantoprazole 40 MG Tab.CR PO SCH (09:37)
[2021-01-20] MEDS: amLODIPine 5 MG Tab PO SCH (09:37)
[2021-01-20] MEDS: Fish Oil/Omega-3 Fatty Acids 1 Gm Cap PO SCH ×2 (09:38→20:45)
[2021-01-20] MEDS: Aspirin 81 MG Tab.Chew PO SCH (09:38)
[2021-01-20] MEDS: atorvaSTATin 20 MG Tab PO SCH (09:38)
[2021-01-20] MEDS: Tacrolimus 1 MG Cap PO SCH ×2 (09:50→20:46)
[2021-01-20] MEDS: Tacrolimus 0.5 MG Cap PO SCH (09:50)
[2021-01-20] MEDS: Mycophenolate Mofetil 250 MG Cap PO SCH ×2 (09:51→20:45)
--- NOTE | 2021-01-20 14:29 | PCM.PN ---
- General Info Date of Service: 01/20/21 Admission Dx/Problem (Free Text): Admission Diagnosis/Problem Admission Diagnosis/Problem pneumonia complicated by immune suppressants, acute respiratory failure Subjective Update: The patient is a 65-year-old lady who was admitted secondary to pneumonia associated with immunocompromise state. The patient has a history of heart transplant and renal transplant. They were able to wean her off of oxygen but only to the low nineties. Patient continues to be fatigued. Functional Status: Reports: Pain Controlled - Review of Systems General: Reports: Fatigue HEENT: Reports: No Symptoms Pulmonary: Reports: Shortness of Breath, Cough Cardiovascular: Reports: No Symptoms Gastrointestinal: Reports: No Symptoms Musculoskeletal: Reports: No Symptoms - Patient Data Vitals - Most Recent: Last Vital Signs Temp 97.2 F 01/20/21 12:03 Pulse 73 01/20/21 12:03 Resp 16 01/20/21 12:03 BP 104/71 01/20/21 12:03 Pulse Ox 92 L 01/20/21 12:03 Weight - Most Recent: 131 lb 8 oz I&O - Last 24 Hours: Intake & Output 01/19/21 01/20/21 01/20/21 22:59 06:59 14:59 Intake Total 960 650 Output Total 600 500 Balance 360 150 Med Orders - Current: Current Medications Acetaminophen (Acetaminophen 325 Mg Tab) 650 mg PO Q4H PRN PRN Reason: Pain/Fever Last Admin: 01/20/21 05:18 Dose: 650 mg Documented by: Albuterol (Albuterol 0.083% 2.5 Mg/3 Ml Neb Soln) 2.5 mg NEB Q4H PRN PRN Reason: Shortness of Breath Amlodipine Besylate (Amlodipine 5 Mg Tab) 5 mg PO DAILY [facility] Last Admin: 01/20/21 09:37 Dose: 5 mg Documented by: Ascorbic Acid (Ascorbic Acid 500 Mg Tab) 1,000 mg PO DAILY [facility] Last Admin: 01/20/21 09:37 Dose: 1,000 mg Documented by: Aspirin (Aspirin 81 Mg Tab.Chew) 81 mg PO DAILY [facility] Last Admin: 01/20/21 09:38 Dose: 81 mg Documented by: Atorvastatin Calcium (Atorvastatin 20 Mg Tab) 10 mg PO DAILY [facility] Last Admin: 01/20/21 09:38 Dose: 10 mg Documented by: Benzonatate (Benzonatate 100 Mg Cap) 100 mg PO TID PRN PRN Reason: Cough Last Admin: 01/20/21 01:14 Dose: 100 mg Documented by: Cholecalciferol (Cholecalciferol (Vitamin D3) 25 Mcg Tab) 25 mcg PO BID [facility] Last Admin: 01/20/21 09:36 Dose: 25 mcg Documented by: Diphenhydramine HCl (Diphenhydramine 25 Mg Cap) 25 mg PO Q6HR PRN PRN Reason: Itching Last Admin: 01/18/21 01:18 Dose: 25 mg Documented by: Fish Oil (Fish Oil/[place]-3 Fatty Acids 1 Gm Cap) 1 gm PO BID [facility] Last Admin: 01/20/21 09:38 Dose: 1 gm Documented by: Guaifenesin/Codeine Phosphate (Codeine/Guaifenesin 10-100 Mg/5 Ml Syrup 5 Ml Cup) 10 ml PO Q4H PRN PRN Reason: Cough Last Admin: 01/20/21 05:18 Dose: 10 ml Documented by: Heparin Sodium (Porcine) (Heparin Sodium 5,000 Units/Ml Vial) 5,000 units SUBCUT Q8H [facility] Last Admin: 01/20/21 09:39 Dose: 5,000 units Documented by: Hydroxyzine HCl (Hydroxyzine Hcl 10 Mg Tab) 10 mg PO Q8H PRN PRN Reason: Itching Last Admin: 01/18/21 15:34 Dose: 10 mg Documented by: Levothyroxine Sodium (Levothyroxine 75 Mcg Tab) 75 mcg PO ACBREAKFAST [facility] Last Admin: 01/20/21 05:18 Dose: 75 mcg Documented by: Lorazepam (Lorazepam 0.5 Mg Tab) 0.5 mg PO Q4H PRN PRN Reason: Anxiety Last Admin: 01/18/21 12:57 Dose: 0.5 mg Documented by: Mycophenolate Mofetil (Mycophenolate Mofetil 250 Mg Cap) 250 mg PO BID [facility] Last Admin: 01/20/21 09:51 Dose: 250 mg Documented by: Tacrolimus 0.5 Mg (Cap) 0 each PO DAILY [facility] Last Admin: 01/20/21 09:50 Dose: 1 each Documented by: Ondansetron HCl (Ondansetron 4 Mg/2 Ml Sdv) 4 mg IVPUSH Q6H PRN PRN Reason: Nausea Pantoprazole Sodium (Pantoprazole 40 Mg Tab.Cr) 40 mg PO DAILY [facility] Last Admin: 01/20/21 09:37 Dose: 40 mg Documented by: Prednisone (Prednisone 5 Mg Tab) 5 mg PO DAILY [facility] Last Admin: 01/20/21 09:36 Dose: 5 mg Documented by: Tacrolimus (Tacrolimus 1 Mg Cap) 1 mg PO BEDTIME [facility] Last Admin: 01/19/21 20:23 Dose: 1 mg Documented by: Tacrolimus (Tacrolimus 1 Mg Cap) 1 mg PO DAILY [facility] Last Admin: 01/20/21 09:50 Dose: 1 mg Documented by: Vitamin E (Vitamin E (Tc-Giihm-Eomasqenop Acetate) 400 Unit Cap) 400 units PO BID [facility] Last Admin: 01/20/21 09:37 Dose: 400 units Documented by: Discontinued Medications Azithromycin (Azithromycin 250 Mg Tab) 500 mg PO ONETIME ONE Stop: 01/19/21 17:01 Last Admin: 01/19/21 16:12 Dose: Not Given Documented by: Diphenhydramine HCl (Diphenhydramine 25 Mg Cap) 25 mg PO ONETIME ONE Stop: 01/17/21 15:30 Last Admin: 01/17/21 15:47 Dose: 25 mg Documented by: Sodium Chloride (Normal Saline) 1,000 mls @ 250 mls/hr IV ASDIRECTED [facility] Last Admin: 01/16/21 17:14 Dose: 250 mls/hr Documented by: Magnesium Sulfate 4 gm/ Premix 50 mls @ 12.5 mls/hr IV ONETIME ONE Stop: 01/16/21 20:58 Last Admin: 01/16/21 17:16 Dose: 12.5 mls/hr Documented by: Meropenem/Sodium Chloride 500 (mg/ Premix) 50 mls @ 100 mls/hr IV ONETIME ONE Stop: 01/16/21 20:13 Last Admin: 01/16/21 20:26 Dose: 100 mls/hr Documented by: Meropenem/Sodium Chloride 500 (mg/ Premix) 50 mls @ 100 mls/hr IV Q8H [facility] Last Admin: 01/17/21 10:04 Dose: 100 mls/hr Documented by: Piperacillin Sod/Tazobactam (Sod 4.5 gm/ Sodium Chloride) 100 mls @ 25 mls/hr IV Q8H [facility] Last Admin: 01/18/21 08:52 Dose: Not Given Documented by: Azithromycin 500 mg/ Sodium (Chloride) 250 mls @ 250 mls/hr IV Q24H [facility] Last Admin: 01/18/21 16:31 Dose: 250 mls/hr Documented by: Ondansetron HCl (Ondansetron 4 Mg/2 Ml Sdv) 4 mg IVPUSH ONETIME ONE Stop: 01/16/21 16:57 Last Admin: 01/16/21 17:15 Dose: 4 mg Documented by: Tacrolimus 0.5 Mg (Cap) 1.5 each PO QAM [facility] Last Admin: 01/17/21 11:48 Dose: Not Given Documented by: Prednisone (Prednisone 20 Mg Tab) 20 mg PO ONETIME ONE Stop: 01/17/21 16:57 Last Admin: 01/17/21 17:03 Dose: 20 mg Documented by: Prednisone (Prednisone 20 Mg Tab) 20 mg PO ONETIME ONE Stop: 01/17/21 20:54 Last Admin: 01/17/21 21:03 Dose: 20 mg Documented by: Prednisone (Prednisone 5 Mg Tab) 5 mg PO DAILY [facility] Sodium Chloride (Sodium Chloride 0.9% 10 Ml Syringe) 10 ml FLUSH ASDIRECTED PRN PRN Reason: Keep Vein Open Last Admin: 01/16/21 16:03 Dose: 10 ml Documented by: - Exam Quality Assessment: No: Supplemental Oxygen General: Alert, Oriented HEENT: Pupils Equal Neck: Supple Lungs: Clear to Auscultation, Normal Respiratory Effort Cardiovascular: Regular Rate, Regular Rhythm GI/Abdominal Exam: Normal Bowel Sounds, Soft, Non-Tender, No Distention Extremities: Normal Inspection, Normal Range of Motion, Non-Tender, No Pedal Edema, Normal Capillary Refill - Patient Data Result Diagrams: 01/19/21 05:17 01/19/21 05:17 Sepsis Event Note - Evaluation Sepsis Screening Result: No Definite Risk - Focused Exam Vital Signs: Vital Signs Temp Pulse Resp BP Pulse Ox Pulse Ox 01/20/21 12:03 97.2 F 73 16 104/71 92 L 01/20/21 09:37 109/78 01/20/21 09:33 97.5 F 67 14 109/78 97 01/20/21 06:19 90 L 01/20/21 05:13 97.9 F 72 14 107/80 93 L - Problem List & Annotations (1) Pneumonia due to parainfluenza virus SNOMED Code(s): 55598014 Code(s): J12.2 - PARAINFLUENZA VIRUS PNEUMONIA Status: Acute Current Visit: Yes (2) Pneumonia SNOMED Code(s): 529214497 Code(s): J18.9 - PNEUMONIA, UNSPECIFIED ORGANISM Status: Acute Priority: High Current Visit: Yes Qualifiers: Pneumonia type: due to unspecified organism Laterality: unspecified laterality Lung location: unspecified part of lung Qualified Code(s): J18.9 - Pneumonia, unspecified organism (3) Chronic renal failure, stage 3 (moderate) SNOMED Code(s): 01622195, 322027029 Code(s): N18.30 - CHRONIC KIDNEY DISEASE, STAGE 3 UNSPECIFIED Status: C hronic Current Visit: Yes Qualifiers: Chronic kidney disease stage 3 subtype: stage 3b (GFR 30-44) Qualified Code(s): N18.32 - Chronic kidney disease, stage 3b (4) Heart transplant status Status: Chronic Priority: High Current Visit: Yes (5) Kidney transplant recipient Status: Chronic Priority: High Current Visit: Yes - Problem List Review Problem List Initiated/Reviewed/Updated: Yes - Plan Plan:: The patient is a 65-year-old lady who had been admitted to acute hospitalization as an inpatient due to likely viral pneumonia. The patient has tested negative for COVID-19. The patient also is immune compromised because of medications taken for her heart and kidney transplant. Because of this I have elected to treat the patient with meropenem 1 g IV every 8 hours. The patient will be kept on oxygen titrated to keep her saturations around 92%. The patient will be kept on her antirejection drugs. I have also anticoagulated the patient with heparin and she does have decreased filtration from her transplanted kidney. I have also placed the patient on telemetry. She has been encouraged to ambulate. The patient will have her vital signs monitored and her antihypertensive medications will be adjusted as necessary. The patient should be appropriate for discharge in 1 to 2 days depending on her oxygen requirements and her symptomology. 01/18/2021 The patient is a 65-year-old lady who was admitted to acute hospitalization and aggressively treated for viral/bacterial pneumonia due to her immunocompromise state. I have maintain close contact with the patient's transplant physician as well as her venue coordinator and have advised them at various times on the patient's status. I have also called infectious disease in [place] with advice to best handle antibiotics for this patient. The patient had been retained in hospitalization secondary to bed availability. The patient is also anticoagulated on heparin. The patient's oxygen saturations will be maintained at 92%. She will continue on a azithromycin although the Zosyn has been discontinued. Infectious disease doctor does not recommend antiviral medications. I have also treated the patient's itching symptoms with Atarax and occasional Ativan as necessary for anxiety. She will continue on telemetry. Once the patient is oxygen demands have improved she will be appropriate for discharge. Patient will also be kept on her diet as tolerated. 01/19/2021 65-year-old female with a heart lung transplant admitted for right upper lobe pneumonia and hypoxemia. Viral panel returned with positive parainfluenza 3. Patient has been progressively getting better and this morning was only on 2 L nasal cannula. She is also feeling stronger. White count is 9.2, hemoglobin 10.7, normal electrolytes and kidney function. Patient is on third day of azithromycin and we will finish the course of azithromycin, 3 days, in case, with her immunodeficient state, she has a secondary bacterial pneumonia in that right upper lobe. Plan for discharge when patient is stable off oxygen. 01/20/2021 65-year-old female with lung transplant and heart transplant continues to be in the low nineties oxygen saturations. Patient continues to feel weak and is concerned about going home secondary to risk of falling or relapse. Patient will be kept overnight and discharged in the morning. Length of stay greater than 96 hours secondary to slow improvement of ox ygenation due to parainfluenza and underlying immunocompromise from antirejection medications.
[2021-01-21] MEDS: Heparin Sodium 5,000 Units/ML Vial SUBCUT SCH ×2 (03:06→09:18)
[2021-01-21] MEDS: Acetaminophen 325 MG Tab PO PRN (03:17)
[2021-01-21] MEDS: Levothyroxine 75 MCG Tab PO SCH (06:33)
[2021-01-21] MEDS: Benzonatate 100 MG Cap PO PRN ×2 (06:33→15:19)
[2021-01-21] MEDS: Ascorbic Acid 500 MG Tab PO SCH (09:18)
[2021-01-21] MEDS: Aspirin 81 MG Tab.Chew PO SCH (09:18)
[2021-01-21] MEDS: Fish Oil/Omega-3 Fatty Acids 1 Gm Cap PO SCH (09:18)
[2021-01-21] MEDS: Pantoprazole 40 MG Tab.CR PO SCH (09:18)
[2021-01-21] MEDS: Vitamin E (dl-alpha-tocopherol acetate) 400 Unit Cap PO SCH (09:18)
[2021-01-21] MEDS: predniSONE 5 MG Tab PO SCH (09:18)
[2021-01-21] MEDS: atorvaSTATin 20 MG Tab PO SCH (09:18)
[2021-01-21] MEDS: Cholecalciferol (Vitamin D3) 25 MCG Tab PO SCH (09:19)
[2021-01-21] MEDS: amLODIPine 5 MG Tab PO SCH (09:19)
[2021-01-21] MEDS: Tacrolimus 0.5 MG Cap PO SCH (09:20)
[2021-01-21] MEDS: Mycophenolate Mofetil 250 MG Cap PO SCH (09:20)
[2021-01-21] MEDS: Tacrolimus 1 MG Cap PO SCH (09:20)
--- NOTE | 2021-01-21 12:08 | PCM.DCSUM1 ---
Discharge Summary - Hospital Course HPI Initial Comments: - History of Present Illness Initial Comments - Free Text/Narative: The patient is a 65-year-old lady who had presented to the emergency department with a complaint of fever, chills, nausea with 1 episode of vomiting as well as body aches. Patient also says that she has had a headache and has been short of breath with a nonproductive cough. The patient is currently trying to travel back to her home in [place] and she has been visiting here. The patient has had COVID-19 in the past as well as immunizations. The patient also had been hypoxic in the emergency department and she does not use oxygen at home. The patient also has a history of heart transplant and kidney transplant and is on immunosuppressants. The patient also has a history of hypothyroidism as well as hypertension. The patient had been in her usual state of health up until approximately 3 days ago. She has no other specific aggravating or relieving factors. Assessment/Plan Comment:: The patient is a 65-year-old lady who had been admitted to acute hospitalization as an inpatient due to likely viral pneumonia. The patient has tested negative for COVID-19. The patient also is immune compromised because of medications taken for her heart and kidney transplant. Because of this I have elected to treat the patient with meropenem 1 g IV every 8 hours. The patient will be kept on oxygen titrated to keep her saturations around 92%. The patient will be kept on her antirejection drugs. I have also anticoagulated the patient with heparin and she does have decreased filtration from her transplanted kidney. I have also placed the patient on telemetry. She has been encouraged to ambulate. The patient will have her vital signs monitored and her antihypertensive medications will be adjusted as necessary. The patient should be appropriate for discharge in 1 to 2 days depending on her oxygen requirements and her symptomology. - Mortality Measure Prognosis:: Good Diagnosis: Stroke: No - Discharge Data Discharge Date: 01/21/21 Discharge Disposition: Home, Self-Care 01 Condition: Good - Referral to Home Health Primary Care Physician: PCP Not In Area - Discharge Diagnosis/Problem(s) (1) Pneumonia due to parainfluenza virus SNOMED Code(s): 90989131 ICD Code: J12.2 - PARAINFLUENZA VIRUS PNEUMONIA Status: Acute Current Visit: Yes (2) Pneumonia SNOMED Code(s): 024290356 ICD Code: J18.9 - PNEUMONIA, UNSPECIFIED ORGANISM Status: Acute Priority: High Current Visit: Yes Qualifiers: Pneumonia type: due to unspecified organism Laterality: unspecified laterality Lung location: unspecified part of lung Qualified Code(s): J18.9 - Pneumonia, unspecified organism (3) Chronic renal failure, stage 3 (moderate) SNOMED Code(s): 24231052, 418560100 ICD Code: N18.30 - CHRONIC KIDNEY DISEASE, STAGE 3 UNSPECIFIED Status: Chronic Current Visit: Yes Qualifiers: Chronic kidney disease stage 3 subtype: stage 3b (GFR 30-44) Qualified Code(s): N18.32 - Chronic kidney disease, stage 3b (4) Heart transplant status Status: Chronic Priority: High Current Visit: Yes (5) Kidney transplant recipient Status: Chronic Priority: High Current Visit: Yes - Patient Summary/Data Hospital Course: 01/18/2021 The patient is a 65-year-old lady who was admitted to acute hospitalization and aggressively treated for viral/bacterial pneumonia due to her immunocompromise state. I have maintain close contact with the patient's transplant physician as well as her employee wellness/fitness coordinator and have advised them at various times on the patient's status. I have also called infectious disease in [place] with advice to best handle antibiotics for this patient. The patient had been retained in hospitalization secondary to bed availability. The patient is also anticoagulated on heparin. The patient's oxygen saturations will be maintained at 92%. She will continue on a azithromycin although the Zosyn has been discontinued. Infectious disease doctor does not recommend antiviral med ications. I have also treated the patient's itching symptoms with Atarax and occasional Ativan as necessary for anxiety. She will continue on telemetry. Once the patient is oxygen demands have improved she will be appropriate for discharge. Patient will also be kept on her diet as tolerated. 01/19/2021 65-year-old female with a heart lung transplant admitted for right upper lobe pneumonia and hypoxemia. Viral panel returned with positive parainfluenza 3. Patient has been progressively getting better and this morning was only on 2 L nasal cannula. She is also feeling stronger. White count is 9.2, hemoglobin 10.7, normal electrolytes and kidney function. Patient is on third day of azithromycin and we will finish the course of azithromycin, 3 days, in case, w ith her immunodeficient state, she has a secondary bacterial pneumonia in that right upper lobe. Plan for discharge when patient is stable off oxygen. 01/20/2021 65-year-old female with lung transplant and heart transplant continues to be in the low nineties oxygen saturations. Patient continues to feel weak and is concerned about going home secondary to risk of falling or relapse. Patient will be kept overnight and discharged in the morning. 01/21/2021 Patient states that she is feeling well. She has been off of oxygen now for over 24 hours. She still has some concerns about flying and I have recommended that she wait till after the weekend. She should likely take another week off of work to recover. She will discuss with her primary care providers any paperwork that needs to be done. She will follow up when she gets home with her primary care provider and transplant team. - Patient Instructions Diet: Usual Diet as Tolerated Activity: As Tolerated Driving: May Drive Today Showering/Bathing: May Shower Notify Provider of: Fever, Nausea and/or Vomiting Other/Special Instructions: Follow-up with your primary care provider and transplant team when you return to [place]. - Discharge Plan *PRESCRIPTION DRUG MONITORING PROGRAM REVIEWED*: No *COPY OF PRESCRIPTION DRUG MONITORING REPORT IN PATIENT SONIA: No Home Medications: Home Meds Aspirin 81 mg PO DAILY 01/16/21 [History] Levothyroxine 75 mcg PO DAILY 01/16/21 [History] Pantoprazole [ProTONIX] 40 mg PO DAILY 01/16/21 [History] Tacrolimus 1 mg PO BEDTIME 01/16/21 [History] Tacrolimus [Prograf] 1.5 mg PO QAM 01/16/21 [History] amLODIPine [Norvasc] 5 mg PO DAILY 01/16/21 [History] atorvaSTATin [Lipitor] 10 mg PO DAILY 01/16/21 [History] mycophenolate mofetiL [Mycophenolate Mofetil] 250 mg PO BID 01/16/21 [History] Ascorbic Acid 2 tab PO DAILY 01/17/21 [History] Cholecalciferol (Vitamin D3) [Vitamin D3] 200 mcg PO BID 01/17/21 [History] Leslie-3/DHA/Epa/Fish Oil [Eql Fish Oil EC 1,200 mg Sftgl] 1 cap PO BID 01/17/21 [History] Vitamin E 1 cap PO BID 01/17/21 [History] predniSONE 5 mg PO DAILY 01/17/21 [History] predniSONE 5 mg PO DAILY tablet 01/21/21 [Rx] Oxygen Therapy Mode: Room Air Patient Handouts: Community-Acquired Pneumonia, Adult, [id number], Sepsis, Self Care, Adult Forms: ED Department Discharge Referrals: other, Brandon Woodard [Other] (follow up with her as soon as you return home to [place]) - Discharge Summary/Plan Comment DC Time >30 min.: No Total # of Minutes for Discharge Time: 20 - General Info Date of Service: 01/21/21 Admission Dx/Problem (Free Text: Admission Diagnosis/Problem Admission Diagnosis/Problem pneumonia complicated by immune suppressants, acute respiratory failure Subjective Update: The patient is a 65-year-old lady who was admitted secondary to pneumonia associated with immunocompromise state. The patient has a history of heart transplant and renal transplant. She is walking around in her room without difficulty although she still does feel fatigued. Functional Status: Reports: Pain Controlled - Review of Systems General: Reports: No Symptoms HEENT: Reports: No Symptoms Pulmonary: Reports: No Symptoms Cardiovascular: Reports: No Symptoms Gastrointestinal: Reports: No Symptoms Musculoskeletal: Reports: No Symptoms - Patient Data Vitals - Most Recent: Last Vital Signs Temp 97.7 F 01/21/21 09:16 Pulse 66 01/21/21 09:16 Resp 18 01/21/21 09:16 BP 127/66 01/21/21 09:19 Pulse Ox 97 01/21/21 09:16 Weight - Most Recent: 129 lb 8 oz I&O - Last 24 hours: Intake & Output 01/20/21 01/21/21 01/21/21 22:59 06:59 14:59 Intake Total 2530 1950 Output Total 1400 2100 Balance 1130 -150 Lab Results - Last 24 hrs: Laboratory Results - last 24 hr 01/17/21 Range/Units 05:47 Tacrolimus 1.1 L (2.0-20.0) ng/mL Med Orders - Current: Current Medications Acetaminophen (Acetaminophen 325 Mg Tab) 650 mg PO Q4H PRN PRN Reason: Pain/Fever Last Admin: 01/21/21 03:17 Dose: 650 mg Documented by: Albuterol (Albuterol 0.083% 2.5 Mg/3 Ml Neb Soln) 2.5 mg NEB Q4H PRN PRN Reason: Shortness of Breath Amlodipine Besylate (Amlodipine 5 Mg Tab) 5 mg PO DAILY [facility] Last Admin: 01/21/21 09:19 Dose: 5 mg Documented by: Ascorbic Acid (Ascorbic Acid 500 Mg Tab) 1,000 mg PO DAILY [facility] Last Admin: 01/21/21 09:18 Dose: 1,000 mg Documented by: Aspirin (Aspirin 81 Mg Tab.Chew) 81 mg PO DAILY [facility] Last Admin: 01/21/21 09:18 Dose: 81 mg Documented by: Atorvastatin Calcium (Atorvastatin 20 Mg Tab) 10 mg PO DAILY [facility] Last Admin: 01/21/21 09:18 Dose: 10 mg Documented by: Benzonatate (Benzonatate 100 Mg Cap) 100 mg PO TID PRN PRN Reason: Cough Last Admin: 01/21/21 06:33 Dose: 100 mg Documented by: Cholecalciferol (Cholecalciferol (Vitamin D3) 25 Mcg Tab) 25 mcg PO BID [facility] Last Admin: 01/21/21 09:19 Dose: 25 mcg Documented by: Diphenhydramine HCl (Diphenhydramine 25 Mg Cap) 25 mg PO Q6HR PRN PRN Reason: Itching Last Admin: 01/18/21 01:18 Dose: 25 mg Documented by: Fish Oil (Fish Oil/Leslie-3 Fatty Acids 1 Gm Cap) 1 gm PO BID [facility] Last Admin: 01/21/21 09:18 Dose: 1 gm Documented by: Guaifenesin/Codeine Phosphate (Codeine/Guaifenesin 10-100 Mg/5 Ml Syrup 5 Ml Cup) 10 ml PO Q4H PRN PRN Reason: Cough Last Admin: 01/20/21 05:18 Dose: 10 ml Documented by: Heparin Sodium (Porcine) (Heparin Sodium 5,000 Units/Ml Vial) 5,000 units SUBCUT Q8H [facility] Last Admin: 01/21/21 09:18 Dose: 5,000 units Documented by: Hydroxyzine HCl (Hydroxyzine Hcl 10 Mg Tab) 10 mg PO Q8H PRN PRN Reason: Itching Last Admin: 01/18/21 15:34 Dose: 10 mg Documented by: Levothyroxine Sodium (Levothyroxine 75 Mcg Tab) 75 mcg PO ACBREAKFAST [facility] Last Admin: 01/21/21 06:33 Dose: 75 mcg Documented by: Lorazepam (Lorazepam 0.5 Mg Tab) 0.5 mg PO Q4H PRN PRN Reason: Anxiety Last Admin: 01/18/21 12:57 Dose: 0.5 mg Documented by: Mycophenolate Mofetil (Mycophenolate Mofetil 250 Mg Cap) 250 mg PO BID [facility] Last Admin: 01/21/21 09:20 Dose: 250 mg Documented by: Tacrolimus 0.5 Mg (Cap) 0 each PO DAILY [facility] Last Admin: 01/21/21 09:20 Dose: 1 each Documented by: Ondansetron HCl (Ondansetron 4 Mg/2 Ml Sdv) 4 mg IVPUSH Q6H PRN PRN Reason: Nausea Pantoprazole Sodium (Pantoprazole 40 Mg Tab.Cr) 40 mg PO DAILY [facility] Last Admin: 01/21/21 09:18 Dose: 40 mg Documented by: Prednisone (Prednisone 5 Mg Tab) 5 mg PO DAILY [facility] Last Admin: 01/21/21 09:18 Dose: 5 mg Documented by: Tacrolimus (Tacrolimus 1 Mg Cap) 1 mg PO BEDTIME [facility] Last Admin: 01/20/21 20:46 Dose: 1 mg Documented by: Tacrolimus (Tacrolimus 1 Mg Cap) 1 mg PO DAILY [facility] Last Admin: 01/21/21 09:20 Dose: 1 mg Documented by: Vitamin E (Vitamin E (Eb-Uduyd-Hhpjwzeyxd Acetate) 400 Unit Cap) 400 units PO BID [facility] Last Admin: 01/21/21 09:18 Dose: 400 units Documented by: Discontinued Medications Azithromycin (Azithromycin 250 Mg Tab) 500 mg PO ONETIME ONE Stop: 01/19/21 17:01 Last Admin: 01/19/21 16:12 Dose: Not Given Documented by: Diphenhydramine HCl (Diphenhydramine 25 Mg Cap) 25 mg PO ONETIME ONE Stop: 01/17/21 15:30 Last Admin: 01/17/21 15:47 Dose: 25 mg Documented by: Sodium Chloride (Normal Saline) 1,000 mls @ 250 mls/hr IV ASDIRECTED [facility] Last Admin: 01/16/21 17:14 Dose: 250 mls/hr Documented by: Magnesium Sulfate 4 gm/ Premix 50 mls @ 12.5 mls/hr IV ONETIME ONE Stop: 01/16/21 20:58 Last Admin: 01/16/21 17:16 Dose: 12.5 mls/hr Documented by: Meropenem/Sodium Chloride 500 (mg/ Premix) 50 mls @ 100 mls/hr IV ONETIME ONE Stop: 01/16/21 20:13 Last Admin: 01/16/21 20:26 Dose: 100 mls/hr Documented by: Meropenem/Sodium Chloride 500 (mg/ Premix) 50 mls @ 100 mls/hr IV Q8H [facility] Last Admin: 01/17/21 10:04 Dose: 100 mls/hr Documented by: Piperacillin Sod/Tazobactam (Sod 4.5 gm/ Sodium Chloride) 100 mls @ 25 mls/hr IV Q8H [facility] Last Admin: 01/18/21 08:52 Dose: Not Given Documented by: Azithromycin 500 mg/ Sodium (Chloride) 250 mls @ 250 mls/hr IV Q24H [facility] Last Admin: 01/18/21 16:31 Dose: 250 mls/hr Documented by: Ondansetron HCl (Ondansetron 4 Mg/2 Ml Sdv) 4 mg IVPUSH ONETIME ONE Stop: 01/16/21 16:57 Last Admin: 01/16/21 17:15 Dose: 4 mg Documented by: Tacrolimus 0.5 Mg (Cap) 1.5 each PO QAM [facility] Last Admin: 01/17/21 11:48 Dose: Not Given Documented by: Prednisone (Prednisone 20 Mg Tab) 20 mg PO ONETIME ONE Stop: 01/17/21 16:57 Last Admin: 01/17/21 17:03 Dose: 20 mg Documented by: Prednisone (Prednisone 20 Mg Tab) 20 mg PO ONETIME ONE Stop: 01/17/21 20:54 Last Admin: 01/17/21 21:03 Dose: 20 mg Documented by: Prednisone (Prednisone 5 Mg Tab) 5 mg PO DAILY [facility] Sodium Chloride (Sodium Chloride 0.9% 10 Ml Syringe) 10 ml FLUSH ASDIRECTED PRN PRN Reason: Keep Vein Open Last Admin: 01/16/21 16:03 Dose: 10 ml Documented by: - Exam Quality Assessment: Denies: Supplemental Oxygen General: Reports: Alert, Oriented HEENT: Reports: Pupils Equal, Mucous Membr. Moist/[place] Neck: Reports: Supple Lungs: Reports: Normal Respiratory Effort, Rhonchi (Scattered) Cardiovascular: Reports: Regular Rate, Regular Rhythm GI/Abdominal Exam: Normal Bowel Sounds, Soft, Non-Tender, No Organomegaly, No Distention, No Abnormal Bruit, No Mass Extremities: Normal Inspection, Normal Range of Motion, Non-Tender, No Pedal Edema, Normal Capillary Refill Skin: Reports: Warm, Dry, Intact Psy/Mental Status: Reports: Alert, Normal Affect, Normal Mood
== END 2021-01-21 17:24 | disposition home or self-care (01) | DRG 193 ==
LOC: JD.ED 13:41 → JD.MS 19:44
PROVIDERS: ADMIT Internal Medicine; ATTEND Internal Medicine
DX: J18.9 Pneumonia, unspecified organism (principal); J12.2 Parainfluenza virus pneumonia; I10 Essential (primary) hypertension; J96.01 Acute respiratory failure with hypoxia; Z94.1 Heart transplant status; Z94.0 Kidney transplant status; D84.9 Immunodeficiency, unspecified; I13.0 Hypertensive heart and chronic kidney disease with heart failure and stage 1 through stage 4 chronic kidney disease, or unspecified chronic kidney disease; N18.32 Chronic kidney disease, stage 3b; E03.9 Hypothyroidism, unspecified; F41.9 Anxiety disorder, unspecified; J15.9 Unspecified bacterial pneumonia; Z79.52 Long term (current) use of systemic steroids; E78.00 Pure hypercholesterolemia, unspecified; K21.9 Gastro-esophageal reflux disease without esophagitis; M19.90 Unspecified osteoarthritis, unspecified site; F32.A Depression, unspecified; Z79.82 Long term (current) use of aspirin; Z79.890 Hormone replacement therapy; Z79.899 Other long term (current) drug therapy; Z88.2 Allergy status to sulfonamides; Z88.1 Allergy status to other antibiotic agents; Z87.891 Personal history of nicotine dependence; Z20.822 Contact with and (suspected) exposure to COVID-19
CPT/HCPCS: 0240U; 36415; 71045; 71275; 80053; 80197; 81001; 83605; 83735; 83880; 84484; 85025; 85379; 85610; 86140; 87040; 87486; 87497; 87581; 87633; 87798; 93306; 94760; 94761; 96365; 96366; 96375; 99285; 87252; 99222; 99232; 99238; 99284; A9270-GY; J0456; J1644; J2185; J2405; J2543; J3475; J7030; J7050; J7507; J7512; U0002

== ENCOUNTER 2023-07-07 19:48 | Inpatient (IN) | payer MEDICARE ==
[2023-07-07 20:13] LABS: BASOPHILS PERCENT AUTO 0.3 % (0.0-1.0); EOSINOPHILS PERCENT AUTO 0.2 % (0.0-6.0); HEMATOCRIT 37.8 % (37.0-47.0); HEMOGLOBIN 12.3 gm/dl (12.0-16.0); IMMATURE GRAN ABSOLUTE AUTO 0.04 K/mm3 (0.00-0.05); IMMATURE GRAN PERCENT AUTO 0.3 % (0.0-0.4); LYMPHOCYTES ABSOLUTE AUTO 1.9 K/mm3 (1.0-4.8); LYMPHOCYTES PERCENT AUTO 15.7 % (24.0-44.0); MEAN CORPUSCULAR HEMOGLOBIN 28.5 pg (28.0-32.0); MEAN CORPUSCULAR HGB CONC 32.5 g/dl (32.0-36.0); MEAN CORPUSCULAR VOLUME 87.5 fl (83.0-99.0); MEAN PLATELET VOLUME 9.9 fl (9.4-12.3); MONOCYTES ABSOLUTE AUTO 0.9 K/mm3 (0.0-0.8); MONOCYTES PERCENT AUTO 7.4 % (0.0-8.0); NEUTROPHILS ABSOLUTE AUTO 9.3 K/mm3 (1.8-7.7); NEUTROPHILS PERCENT AUTO 76.1 % (41.0-71.0); PLATELET COUNT,PLT 156 K/mm3 (150-400); RED BLOOD CELL COUNT 4.32 M/mm3 (4.10-5.30); WHITE BLOOD CELL COUNT,WBC 12.22 K/mm3 (3.9-11.3)
[2023-07-07] MEDS: Ondansetron 4 MG/2 ML SDV IVPUSH ONE (20:25)
[2023-07-07] MEDS: Lactated Ringers 1,000 ML IV ONE (20:25)
[2023-07-07 20:40] LABS: APPEARANCE,URINE CLEAR (Clear); BILIRUBIN,URINE NEGATIVE (Negative); COLOR,URINE YELLOW (Yellow); GLUCOSE,URINE NEGATIVE (Negative); KETONES,URINE NEGATIVE (Negative); LEUKOCYTE ESTERASE,URINE TRACE (Negative); NITRITE,URINE NEGATIVE (Negative); OCCULT BLOOD,URINE NEGATIVE (Negative); PH,URINE 7.5 (5.0-8.0); PROTEIN,URINE TRACE (Negative); UROBILINOGEN,URINE 0.2 (0.2-1.0)
[2023-07-07 20:40] LABS: LACTIC ACID 0.7 mmol/L (0.4-2.0)
[2023-07-07 20:41] LABS: A/G RATIO 1.2 (1-2); ALBUMIN 3.7 g/dl (3.4-5.0); ANION GAP 14.7 (5-15); BILIRUBIN TOTAL 1.2 mg/dL (0.2-1.0); BUN/CREATININE RATIO 23.8 (14-18); CALCIUM 8.9 mg/dL (8.5-10.1); CREATININE 0.8 mg/dL (0.55-1.02); EST CRCL DRUG DOSING (CG) 56.39 mL/min; MAGNESIUM 1.3 mg/dL (1.8-2.4); POTASSIUM,K 3.7 mEq/L (3.5-5.1); PROTEIN TOTAL,TP 6.7 g/dl (6.4-8.2)
[2023-07-07 20:49] LABS: BACTERIA,URINE FEW /hpf (FEW); EPITHELIAL CELLS,URINE 0-5 /hpf (0-5); HYALINE CASTS,URINE 0-5 /lpf (0-5); MUCUS,URINE MODERATE /hpf (FEW); RBC,URINE 0-5 /hpf (0-5)
[2023-07-07] MEDS: cefTRIAXone 2 GM in Sodium Chloride 0.9% 100 ML IV ONE (21:58)
[2023-07-07] MEDS: Magnesium Sulfate/Water 2 GM in Premix Bag 1 BAG IV ONE (22:07)
[2023-07-07] MEDS: Meropenem 1 GM in Sodium Chloride 0.9% 100 ML IV SCH (22:07)
[2023-07-07] MEDS ORDERED: Albuterol 0.083% 2.5 MG/3 ML Neb Soln NEB PRN (22:19)
[2023-07-07 22:24] LABS: CORONAVIRUS COVID-19 NAA NEGATIVE (NEGATIVE); INFLUENZA A NAA NEGATIVE (NEGATIVE); RESPIRATORY SYNCYTIAL VIR NAA NEGATIVE (NEGATIVE)
[2023-07-07] MEDS: Doxycycline Monohydrate 100 MG Cap PO SCH (23:05)
[2023-07-07] MEDS: Sodium Chloride 0.9% 1,000 ML IV SCH (23:05)
[2023-07-07] MEDS: Heparin Sodium 5,000 Units/ML Vial SUBCUT SCH (23:05)
[2023-07-07] MEDS: Acetaminophen 325 MG Tab PO PRN (23:52)
[2023-07-08 07:26] LABS: BASOPHILS PERCENT AUTO 0.2 % (0.0-1.0); EOSINOPHILS PERCENT AUTO 0.1 % (0.0-6.0); HEMATOCRIT 33.9 % (37.0-47.0); IMMATURE GRAN ABSOLUTE AUTO 0.03 K/mm3 (0.00-0.05); IMMATURE GRAN PERCENT AUTO 0.3 % (0.0-0.4); LYMPHOCYTES ABSOLUTE AUTO 1.4 K/mm3 (1.0-4.8); LYMPHOCYTES PERCENT AUTO 12.5 % (24.0-44.0); MEAN CORPUSCULAR HEMOGLOBIN 29.1 pg (28.0-32.0); MEAN CORPUSCULAR HGB CONC 32.4 g/dl (32.0-36.0); MEAN CORPUSCULAR VOLUME 89.7 fl (83.0-99.0); MONOCYTES ABSOLUTE AUTO 0.6 K/mm3 (0.0-0.8); MONOCYTES PERCENT AUTO 5.5 % (0.0-8.0); NEUTROPHILS PERCENT AUTO 81.4 % (41.0-71.0); PLATELET COUNT,PLT 147 K/mm3 (150-400); RED BLOOD CELL COUNT 3.78 M/mm3 (4.10-5.30); WHITE BLOOD CELL COUNT,WBC 11.04 K/mm3 (3.9-11.3)
[2023-07-08 08:05] LABS: A/G RATIO 1.1 (1-2); CALCIUM 8.1 mg/dL (8.5-10.1); EST CRCL DRUG DOSING (CG) 43.61 mL/min; PROTEIN TOTAL,TP 5.7 g/dl (6.4-8.2)
[2023-07-08] MEDS: atorvaSTATin 20 MG Tab PO SCH (08:11)
[2023-07-08] MEDS: Acyclovir 200 MG Cap PO SCH (08:12)
[2023-07-08] MEDS: amLODIPine 5 MG Tab PO SCH (08:12)
[2023-07-08 08:13] LABS: POTASSIUM,K 3.8 mEq/L (3.5-5.1)
[2023-07-08] MEDS: Levothyroxine 75 MCG Tab PO SCH (08:16)
[2023-07-08] MEDS: Aspirin 81 MG Tab.EC PO SCH (08:16)
[2023-07-08] MEDS: predniSONE 5 MG Tab PO SCH (08:16)
[2023-07-08] MEDS: Tacrolimus 0.5 MG Cap PO SCH (08:17)
[2023-07-08] MEDS: diphenhydrAMINE 25 MG Cap PO ONE (09:20)
[2023-07-08] MEDS: DHA PO SCH (10:10)
[2023-07-08] MEDS: EPA PO SCH (10:10)
[2023-07-08] MEDS: CHOLECALCIFEROL 250 MCG PO SCH (10:10)
[2023-07-08] MEDS: OMEGA PO SCH (10:10)
[2023-07-08] MEDS: [UNRECOGNIZED DRUG - OTHER] PO SCH (10:10)
[2023-07-08] MEDS: FISH OIL PO SCH (10:10)
[2023-07-08] MEDS: predniSONE 20 MG Tab PO ONE (11:52)
[2023-07-08 14:18] LABS: ANION GAP 15.8 (5-15)
[2023-07-08] MEDS: diphenhydrAMINE 50 MG Cap PO ONE ×2 (14:41→21:44)
[2023-07-09 05:33] LABS: HEMATOCRIT 31.2 % (37.0-47.0); HEMOGLOBIN 10.2 gm/dl (12.0-16.0); MEAN CORPUSCULAR HEMOGLOBIN 28.7 pg (28.0-32.0); MEAN CORPUSCULAR HGB CONC 32.7 g/dl (32.0-36.0); MEAN CORPUSCULAR VOLUME 87.9 fl (83.0-99.0); MEAN PLATELET VOLUME 10.2 fl (9.4-12.3); PLATELET COUNT,PLT 141 K/mm3 (150-400); RED BLOOD CELL COUNT 3.55 M/mm3 (4.10-5.30); WHITE BLOOD CELL COUNT,WBC 8.22 K/mm3 (3.9-11.3)
[2023-07-09 05:53] LABS: A/G RATIO 1.2 (1-2); ANION GAP 10.6 (5-15); BILIRUBIN TOTAL 0.7 mg/dL (0.2-1.0); BUN/CREATININE RATIO 13.8 (14-18); CALCIUM 8.3 mg/dL (8.5-10.1); CREATININE 0.8 mg/dL (0.55-1.02); EST CRCL DRUG DOSING (CG) 56.29 mL/min; POTASSIUM,K 3.6 mEq/L (3.5-5.1); PROTEIN TOTAL,TP 5.6 g/dl (6.4-8.2)
[2023-07-09] MEDS: hydrOXYzine HCl 10 MG Tab PO PRN (10:04)
[2023-07-09] MEDS: Cetirizine 10 MG Tab PO SCH (10:04)
[2023-07-09] MEDS: diphenhydrAMINE/Zinc Acetate 2% Crm 28.4 GM Tube TOP PRN (13:41)
[2023-07-10 05:07] LABS: HEMATOCRIT 32.8 % (37.0-47.0); HEMOGLOBIN 10.6 gm/dl (12.0-16.0); MEAN CORPUSCULAR HEMOGLOBIN 28.4 pg (28.0-32.0); MEAN CORPUSCULAR HGB CONC 32.3 g/dl (32.0-36.0); MEAN CORPUSCULAR VOLUME 87.9 fl (83.0-99.0); MEAN PLATELET VOLUME 10.2 fl (9.4-12.3); PLATELET COUNT,PLT 148 K/mm3 (150-400); RED BLOOD CELL COUNT 3.73 M/mm3 (4.10-5.30); WHITE BLOOD CELL COUNT,WBC 8.62 K/mm3 (3.9-11.3)
[2023-07-10 05:40] LABS: A/G RATIO 1.1 (1-2); ALBUMIN 3.1 g/dl (3.4-5.0); ANION GAP 13.1 (5-15); BILIRUBIN TOTAL 0.5 mg/dL (0.2-1.0); BUN/CREATININE RATIO 18.8 (14-18); CALCIUM 8.4 mg/dL (8.5-10.1); CREATININE 0.8 mg/dL (0.55-1.02); EST CRCL DRUG DOSING (CG) 56.29 mL/min; POTASSIUM,K 4.1 mEq/L (3.5-5.1)
== END 2023-07-10 13:15 | disposition home or self-care (01) | DRG 193 ==
LOC: JD.ED 19:48 → JD.MS 21:53
PROVIDERS: ADMIT Internal Medicine; ATTEND Internal Medicine
DX: J18.9 Pneumonia, unspecified organism (principal); J96.01 Acute respiratory failure with hypoxia; I10 Essential (primary) hypertension; N39.0 Urinary tract infection, site not specified; Z94.0 Kidney transplant status; Z94.1 Heart transplant status; D84.821 Immunodeficiency due to drugs; E78.00 Pure hypercholesterolemia, unspecified; K21.9 Gastro-esophageal reflux disease without esophagitis; Z88.2 Allergy status to sulfonamides; Z88.8 Allergy status to other drugs, medicaments and biological substances; M19.90 Unspecified osteoarthritis, unspecified site; M47.812 Spondylosis without myelopathy or radiculopathy, cervical region; M19.011 Primary osteoarthritis, right shoulder; F32.A Depression, unspecified; E03.9 Hypothyroidism, unspecified; N18.32 Chronic kidney disease, stage 3b; I12.9 Hypertensive chronic kidney disease with stage 1 through stage 4 chronic kidney disease, or unspecified chronic kidney disease; L29.8 Other pruritus; J32.9 Chronic sinusitis, unspecified; Z88.1 Allergy status to other antibiotic agents; Z88.0 Allergy status to penicillin; Z79.82 Long term (current) use of aspirin; Z79.899 Other long term (current) drug therapy; Z79.2 Long term (current) use of antibiotics; Z94.89 Other transplanted organ and tissue status; Z86.16 Personal history of COVID-19; Z98.891 History of uterine scar from previous surgery
CPT/HCPCS: 0241U; 36415; 71045; 71101; 74176; 80053; 81001; 81003; 83605; 83735; 84484; 85025; 85027; 87086; 93005; 94760; 94761; 96361; 96374; 99285; 93010; 99284; A9270-GY; J1644; J2185; J2405; J3475; J3490; J7030; J7120; J7507; J7512; Q0163

== ENCOUNTER 2024-02-11 15:38 | Inpatient (IN) | payer MEDICARE ==
[2024-02-11 17:44] LABS: BASOPHILS PERCENT AUTO 0.1 % (0.0-1.0); HEMATOCRIT 40.8 % (37.0-47.0); HEMOGLOBIN 12.8 gm/dl (12.0-16.0); IMMATURE GRAN ABSOLUTE AUTO 0.05 K/mm3 (0.00-0.05); IMMATURE GRAN PERCENT AUTO 0.3 % (0.0-0.4); LYMPHOCYTES ABSOLUTE AUTO 0.7 K/mm3 (1.0-4.8); LYMPHOCYTES PERCENT AUTO 4.7 % (24.0-44.0); MEAN CORPUSCULAR HEMOGLOBIN 29.1 pg (28.0-32.0); MEAN CORPUSCULAR HGB CONC 31.4 g/dl (32.0-36.0); MEAN CORPUSCULAR VOLUME 92.7 fl (83.0-99.0); MEAN PLATELET VOLUME 9.6 fl (9.4-12.3); MONOCYTES ABSOLUTE AUTO 0.5 K/mm3 (0.0-0.8); MONOCYTES PERCENT AUTO 3.4 % (0.0-8.0); NEUTROPHILS ABSOLUTE AUTO 13.1 K/mm3 (1.8-7.7); NEUTROPHILS PERCENT AUTO 91.5 % (41.0-71.0); PLATELET COUNT,PLT 153 K/mm3 (150-400); WHITE BLOOD CELL COUNT,WBC 14.33 K/mm3 (3.9-11.3)
[2024-02-11 17:53] LABS: APPEARANCE,URINE CLEAR (Clear); BILIRUBIN,URINE NEGATIVE (Negative); COLOR,URINE YELLOW (Yellow); GLUCOSE,URINE NEGATIVE (Negative); KETONES,URINE NEGATIVE (Negative); LEUKOCYTE ESTERASE,URINE 1+ (Negative); NITRITE,URINE NEGATIVE (Negative); OCCULT BLOOD,URINE NEGATIVE (Negative); PH,URINE 6.5 (5.0-8.0); PROTEIN,URINE NEGATIVE (Negative); UROBILINOGEN,URINE 0.2 (0.2-1.0)
[2024-02-11 17:56] LABS: BACTERIA,URINE FEW /hpf (FEW); BARBITURATE SCREEN,URINE NEGATIVE (CUTOFF=200); BENZODIAZEPINES SCREEN,URINE NEGATIVE (CUTOFF=150); BUPRENORPHINE SCREEN,URINE NEGATIVE (CUTOFF=10); METHADONE SCREEN, URINE NEGATIVE (CUTOFF=200); METHAMPHETAMINES SCREEN, URINE NEGATIVE (CUTOFF=500); MUCUS,URINE FEW /hpf (FEW); OXYCODONE SCREEN,URINE NEGATIVE (CUT0FF=100); RBC,URINE 0-5 /hpf (0-5); SQUAMOUS EPITHELIAL CELLS,UR 0-5 /hpf (0-5); THC SCREEN,URINE 20 NG/ML NEGATIVE (CUTOFF=50)
[2024-02-11 17:58] LABS: AMPHETAMINES SCREEN, URINE NEGATIVE (CUTOFF=500)
[2024-02-11 18:15] LABS: A/G RATIO 1.5 (1-2); ALBUMIN 4.5 g/dl (3.4-5.0); ANION GAP 15.4 (5-15); C-REACTIVE PROTEIN 0.31 mg/dL (<0.30); CALCIUM 9.7 mg/dL (8.5-10.1); CREATININE 0.9 mg/dL (0.55-1.02); EST CRCL DRUG DOSING (CG) 42.97 mL/min; MAGNESIUM 0.9 mg/dL (1.8-2.4); POTASSIUM,K 3.4 mEq/L (3.5-5.1); PROTEIN TOTAL,TP 7.6 g/dl (6.4-8.2)
[2024-02-11] MEDS: Acetaminophen 325 MG Tab PO ONE (18:19)
[2024-02-11] MEDS: Sodium Chloride 0.9% 500 ML IV ONE (18:20)
[2024-02-11] MEDS: Meropenem 1 GM in Sodium Chloride 0.9% 100 ML IV ONE (19:54)
[2024-02-11] MEDS ORDERED: Ondansetron 4 MG/2 ML SDV IV PRN (20:07)
[2024-02-11] MEDS ORDERED: Sennosides/Docusate Sodium 50-8.6 MG Tab PO PRN (20:07)
[2024-02-11] MEDS ORDERED: Morphine 2 MG/ML SYRINGE IVPUSH PRN (20:07)
[2024-02-11] MEDS ORDERED: Naloxone 0.4 MG/ML SDV IVPUSH PRN (20:07)
[2024-02-11] MEDS ORDERED: Melatonin 3 MG Tab PO PRN (20:07)
[2024-02-11] MEDS ORDERED: hydrALAZINE 20 MG/ML SDV IVPUSH PRN (20:14)
[2024-02-11] MEDS ORDERED: Labetalol 100 MG/20 ML MDV IVPUSH PRN (20:14)
[2024-02-11] MEDS: Sodium Chloride 0.9% 1,000 ML IV ONE (20:32)
[2024-02-11] MEDS: Magnesium Sulfate/Water Premix 4 GM in Premix Bag 1 BAG IV ONE (21:43)
[2024-02-11] MEDS: Potassium Chloride 20 MEQ Tab.ER PO ONE (21:44)
[2024-02-11] MEDS: Acyclovir 200 MG Cap PO SCH (21:44)
[2024-02-11] MEDS: Tacrolimus 0.5 MG Cap PO SCH (22:49)
[2024-02-11] MEDS: diphenhydrAMINE 50 MG/ML SDV IVPUSH ONE (22:49)
[2024-02-11] MEDS: Meropenem 1 GM in Sodium Chloride 0.9% 100 ML IV SCH (22:50)
[2024-02-11] MEDS: TACROLIMUS 1 MG PO ONE (23:00)
[2024-02-12] MEDS: Meropenem 500 MG SDV IV SCH (03:04)
[2024-02-12 04:28] LABS: BASOPHILS PERCENT AUTO 0.2 % (0.0-1.0); EOSINOPHILS PERCENT AUTO 0.1 % (0.0-6.0); HEMATOCRIT 33.2 % (37.0-47.0); HEMOGLOBIN 10.8 gm/dl (12.0-16.0); IMMATURE GRAN ABSOLUTE AUTO 0.12 K/mm3 (0.00-0.05); IMMATURE GRAN PERCENT AUTO 0.7 % (0.0-0.4); LYMPHOCYTES ABSOLUTE AUTO 1.9 K/mm3 (1.0-4.8); LYMPHOCYTES PERCENT AUTO 11.7 % (24.0-44.0); MEAN CORPUSCULAR HEMOGLOBIN 29.3 pg (28.0-32.0); MEAN CORPUSCULAR HGB CONC 32.5 g/dl (32.0-36.0); MEAN CORPUSCULAR VOLUME 90.2 fl (83.0-99.0); MEAN PLATELET VOLUME 10.2 fl (9.4-12.3); MONOCYTES ABSOLUTE AUTO 0.9 K/mm3 (0.0-0.8); MONOCYTES PERCENT AUTO 5.5 % (0.0-8.0); NEUTROPHILS ABSOLUTE AUTO 13.3 K/mm3 (1.8-7.7); NEUTROPHILS PERCENT AUTO 81.8 % (41.0-71.0); PLATELET COUNT,PLT 129 K/mm3 (150-400); RED BLOOD CELL COUNT 3.68 M/mm3 (4.10-5.30); WHITE BLOOD CELL COUNT,WBC 16.27 K/mm3 (3.9-11.3)
[2024-02-12 05:16] LABS: A/G RATIO 1.1 (1-2); ALBUMIN 3.1 g/dl (3.4-5.0); ANION GAP 14.6 (5-15); BUN/CREATININE RATIO 16.7 (14-18); C-REACTIVE PROTEIN 7.11 mg/dL (<0.30); CALCIUM 7.9 mg/dL (8.5-10.1); CREATININE 0.9 mg/dL (0.55-1.02); EST CRCL DRUG DOSING (CG) 48.54 mL/min; MAGNESIUM 1.9 mg/dL (1.8-2.4); PHOSPHORUS 2.6 mg/dL (2.6-4.7); POTASSIUM,K 4.6 mEq/L (3.5-5.1); PROTEIN TOTAL,TP 5.9 g/dl (6.4-8.2); TSH 0.448 uIU/mL (0.358-3.74)
[2024-02-12] MEDS: Levothyroxine 75 MCG Tab PO SCH (06:20)
[2024-02-12] MEDS: predniSONE 5 MG Tab PO SCH (06:20)
[2024-02-12] MEDS: atorvaSTATin 20 MG Tab PO SCH (08:38)
[2024-02-12] MEDS: Aspirin 81 MG Tab.EC PO SCH (08:38)
[2024-02-12] MEDS: Enoxaparin 40 MG/0.4 ML Syringe SUBCUT SCH (08:38)
[2024-02-12] MEDS: diphenhydrAMINE 25 MG Cap PO PRN (08:38)
[2024-02-12] MEDS: amLODIPine 5 MG Tab PO SCH (08:38)
[2024-02-12] MEDS ORDERED: Aspirin 81 MG Tab.Chew PO SCH (09:00)
[2024-02-12] MEDS: LORazepam 2 MG/ML SDV IV PRN (10:33)
[2024-02-12] MEDS ORDERED: cefTRIAXone 1 GM in Sodium Chloride 0.9% 50 ML IV SCH (11:30)
[2024-02-12] MEDS: Mirtazapine 15 MG Tab PO ONE (12:02)
[2024-02-12] MEDS: Sodium Phosphate 30 MMOLE in Sodium Chloride 0.9% 250 ML IV ONE (13:24)
[2024-02-12] MEDS: cefTRIAXone 1 GM Vial IVPUSH SCH (14:13)
[2024-02-12] MEDS: Lactated Ringers 1,000 ML IV SCH (16:54)
[2024-02-12] MEDS: MYCOPHENOLATE MOFETIL 250 MG PO SCH (21:23)
[2024-02-12] MEDS: oxyCODONE 5 MG Tab PO PRN (21:34)
[2024-02-13 04:38] LABS: BASOPHILS PERCENT AUTO 0.3 % (0.0-1.0); EOSINOPHILS ABSOLUTE AUTO 0.3 K/mm3 (0.0-0.4); EOSINOPHILS PERCENT AUTO 2.3 % (0.0-6.0); HEMATOCRIT 31.1 % (37.0-47.0); HEMOGLOBIN 10.1 gm/dl (12.0-16.0); IMMATURE GRAN ABSOLUTE AUTO 0.06 K/mm3 (0.00-0.05); IMMATURE GRAN PERCENT AUTO 0.5 % (0.0-0.4); LYMPHOCYTES ABSOLUTE AUTO 1.9 K/mm3 (1.0-4.8); LYMPHOCYTES PERCENT AUTO 15.9 % (24.0-44.0); MEAN CORPUSCULAR HEMOGLOBIN 29.2 pg (28.0-32.0); MEAN CORPUSCULAR HGB CONC 32.5 g/dl (32.0-36.0); MEAN CORPUSCULAR VOLUME 89.9 fl (83.0-99.0); MEAN PLATELET VOLUME 10.2 fl (9.4-12.3); MONOCYTES ABSOLUTE AUTO 0.6 K/mm3 (0.0-0.8); PLATELET COUNT,PLT 123 K/mm3 (150-400); RED BLOOD CELL COUNT 3.46 M/mm3 (4.10-5.30); WHITE BLOOD CELL COUNT,WBC 11.79 K/mm3 (3.9-11.3)
[2024-02-13 05:00] LABS: ANION GAP 12.4 (5-15); BUN/CREATININE RATIO 13.8 (14-18); C-REACTIVE PROTEIN 11.84 mg/dL (<0.30); CALCIUM 7.5 mg/dL (8.5-10.1); CREATININE 0.8 mg/dL (0.55-1.02); EST CRCL DRUG DOSING (CG) 54.46 mL/min; MAGNESIUM 1.7 mg/dL (1.8-2.4); PHOSPHORUS 2.4 mg/dL (2.6-4.7); POTASSIUM,K 4.4 mEq/L (3.5-5.1)
[2024-02-13] MEDS: Magnesium Sulfate/Water Premix 4 GM in Premix Bag 1 BAG IV ONE (09:09)
[2024-02-13] MEDS: Acetaminophen 325 MG Tab PO PRN (09:13)
[2024-02-13] MEDS: Phosphorus #1 250 MG Tab PO ONE (09:13)
[2024-02-13] MEDS: Mirtazapine 15 MG Tab PO ONE (11:41)
== END 2024-02-13 14:15 | disposition home or self-care (01) | DRG 872 ==
LOC: JD.ED 15:38 → JD.MS 20:07
PROVIDERS: ADMIT Student in an Organized Health Care Education/Training Program; ATTEND Student in an Organized Health Care Education/Training Program
DX: R53.83 Other fatigue (principal); A41.9 Sepsis, unspecified organism; N39.0 Urinary tract infection, site not specified; E85.9 Amyloidosis, unspecified; D84.9 Immunodeficiency, unspecified; Z94.1 Heart transplant status; Z94.0 Kidney transplant status; R65.20 Severe sepsis without septic shock; E78.00 Pure hypercholesterolemia, unspecified; I10 Essential (primary) hypertension; Z79.890 Hormone replacement therapy; K21.9 Gastro-esophageal reflux disease without esophagitis; M19.90 Unspecified osteoarthritis, unspecified site; G89.29 Other chronic pain; E03.9 Hypothyroidism, unspecified; F15.90 Other stimulant use, unspecified, uncomplicated; E87.6 Hypokalemia; E83.42 Hypomagnesemia; F41.8 Other specified anxiety disorders; Z88.1 Allergy status to other antibiotic agents; Z88.0 Allergy status to penicillin; Z88.2 Allergy status to sulfonamides; Z88.8 Allergy status to other drugs, medicaments and biological substances; Z79.82 Long term (current) use of aspirin; Z79.1 Long term (current) use of non-steroidal anti-inflammatories (NSAID); Z79.899 Other long term (current) drug therapy; Z79.02 Long term (current) use of antithrombotics/antiplatelets; Z86.16 Personal history of COVID-19; Z98.49 Cataract extraction status, unspecified eye; Z87.81 Personal history of (healed) traumatic fracture; Z90.710 Acquired absence of both cervix and uterus; Z87.891 Personal history of nicotine dependence
CPT/HCPCS: 36415; 71045; 80053; 80306; 81001; 83605; 83690; 83735; 83880; 84484; 85025; 86140; 87040 ×2; 87086; 87428; A9270; J2185; J3490; J7030; 80048; 80197; 84100; 84443; 93005; 94761; J0696; J1650; J2060; J3475; J7050; J7120; J7507; J7512